=== PATIENT | female | born 1945 | race Caucasian/White ===

== ENCOUNTER 2017-09-15 08:36 | Emergency (ER) | payer MEDICARE ==
[~2017-09-15] VITALS: Ht 154.9 cm; Wt 72.6 kg
[2017-09-15 09:39] LABS: Basophils # (auto) 0.1 uL; Eosinophils # (auto) 0.8 uL; Monocytes # (auto) 0.7 uL; Monocytes % (auto) 4.6 % (0.0-12.0)
[2017-09-15 09:42] LABS: Basophils % (auto) 0.4 % (0.0-2.0); Eosinophils % (auto) 5.7 % (0.0-7.0); Hematocrit 35.3 % (36.0-46.0); Hemoglobin 11.2 g/dL (12.2-16.2); Lymphocytes # (auto) 3.2 uL; Lymphocytes % (auto) 21.6 % (10.0-50.0); Mean Corpuscular Hemoglobin 26.3 pg (28.0-32.0); Mean Corpuscular Hgb Conc. 31.6 g/dL (32.0-36.0); Neutrophils # (auto) 9.9 uL; Neutrophils % (auto) 67.7 % (37.0-80.0); Platelet Count (auto) 610 10^3/uL (140-450); Red Blood Cells 4.25 10^6/uL (4.0-5.20); Red Cell Distribution Width 17.8 % (11.8-14.3); White Blood Cell 14.6 10^3/uL (4.4-10.8)
[2017-09-15 09:57] LABS: Alanine Aminotransferase 7 U/L (13-56); Albumin 3.6 g/dL (3.4-5.0); Alkaline Phosphatase 80 U/L (45-117); Anion Gap 11 (5-15); Aspartate Aminotransferase 16 U/L (15-37); Bilirubin, Total 0.3 mg/dL (0.2-1.0); Blood Urea Nitrogen 17 mg/dL (7-18); Calcium 9.3 mg/dL (8.5-10.1); Carbon Dioxide 18 mmol/L (21-32); Chloride 108 mmol/L (98-107); GFR African American 47 mL/min; GFR Non-African American 39 mL/min; Glucose 104 mg/dL (74-106); Potassium 3.7 mmol/L (3.5-5.1); Sodium 137 mmol/L (136-145); Total Protein 8.3 g/dL (6.4-8.2)
[2017-09-15] MEDS ORDERED: SODIUM CHLORIDE 0.9% 1,000 ML IV ONE (10:25)
[2017-09-15] MEDS ORDERED: cefTRIAXone 1GM/10ml IVPUSH 10 ML IV ONE (11:00)
[2017-09-15] MEDS ORDERED: AZITHROMYCIN 500MG/ 250ML 250 ML IV ONE (11:15)
[2017-09-15 11:35] VITALS: BP 168/85
[2017-09-15 11:45] LABS: Urine Bacteria FEW /hpf (None Seen); Urine Blood Negative /uL (Negative); Urine Mucus FEW (None Seen); Urine Specific Gravity 1.009 (1.001-1.035); Urine WBC 1 /hpf (0 - 5)
[2017-09-15] MEDS ORDERED: ONDANSETRON HCL 4 MG/2 ML VIAL ONE (12:45)
[2017-09-15] MEDS ORDERED: ONDANSETRON HCL 4 MG/2 ML VIAL IV ONE (12:45)
== END 2017-09-15 13:38 | disposition home or self-care (01) ==
LOC: ER 08:36
DX: G20 Parkinson's disease (principal); N39.0 Urinary tract infection, site not specified; I10 Essential (primary) hypertension; J44.9 Chronic obstructive pulmonary disease, unspecified; Z88.6 Allergy status to analgesic agent; Z88.1 Allergy status to other antibiotic agents
CPT/HCPCS: 36415; 71046; 80053; 81001; 82962; 84484; 85025; 93005; 94761; 96361; 96365; 96366; 96375; 99285; J0456; J2405

== ENCOUNTER 2017-11-21 05:56 | Emergency (ER) | payer MEDICARE ==
[~2017-11-21] VITALS: Ht 154.9 cm; Wt 74.4 kg
[2017-11-21 06:41] LABS: Hematocrit 35.6 % (36.0-46.0); Hemoglobin 11.2 g/dL (12.2-16.2); Mean Corpuscular Hgb Conc. 31.6 g/dL (32.0-36.0); Mean Corpuscular Volume 79.3 fL (80.0-100.0); Platelet Count (auto) 535 10^3/uL (140-450); Red Blood Cells 4.48 10^6/uL (4.0-5.20); Red Cell Distribution Width 18.6 % (11.8-14.3); White Blood Cell 9.3 10^3/uL (4.4-10.8)
[2017-11-21 06:43] LABS: Blast Cells 0; Myelocytes % 0; Promyelocytes % 0; Reactive Lymphocytes 0
[2017-11-21 06:48] LABS: INR 0.93 (0.9-1.15); Partial Thromboplastin Time 30.8 sec (23.78-33.04)
[2017-11-21 06:54] LABS: Alanine Aminotransferase 13 U/L (13-56); Albumin 3.5 g/dL (3.4-5.0); Anion Gap 9 (5-15); Aspartate Aminotransferase 18 U/L (15-37); BUN/Creatinine Ratio 11.1; Blood Urea Nitrogen 16 mg/dL (7-18); Carbon Dioxide 23 mmol/L (21-32); Chloride 104 mmol/L (98-107); GFR African American 46 mL/min; GFR Non-African American 38 mL/min; Glucose 117 mg/dL (74-106); Magnesium 2.3 mg/dL (1.6-2.6); Potassium 3.6 mmol/L (3.5-5.1); Sodium 136 mmol/L (136-145)
[2017-11-21 06:58] LABS: Alkaline Phosphatase 79 U/L (45-117); Bilirubin, Total 0.5 mg/dL (0.2-1.0); Total Protein 8.3 g/dL (6.4-8.2)
[2017-11-21 07:17] VITALS: BP 161/95
[2017-11-21 07:43] LABS: Band Neutrophils % (manual) 4; Basophils % (manual) 0 (0.0-2.0); Eosinophils % (manual) 1 (0-7); Lymphocytes % (manual) 22 (10.0-50.0); Metamyelocytes % 0; Monocytes % (manual) 6 (0-12)
== END 2017-11-21 12:14 | disposition home or self-care (01) ==
LOC: ER 06:05
DX: S29.011A Strain of muscle and tendon of front wall of thorax, initial encounter (principal); J44.9 Chronic obstructive pulmonary disease, unspecified; I10 Essential (primary) hypertension; R06.02 Shortness of breath; Z88.1 Allergy status to other antibiotic agents; Z88.2 Allergy status to sulfonamides; Z88.6 Allergy status to analgesic agent; X58.XXXA Exposure to other specified factors, initial encounter; Y93.89 Activity, other specified; Y92.89 Other specified places as the place of occurrence of the external cause; Y99.8 Other external cause status
CPT/HCPCS: 36415; 71045; 80053; 83735; 83880; 84443; 84484; 85007; 85027; 85610; 85730; 93005

== ENCOUNTER 2018-01-22 06:35 | Emergency (ER) | payer MEDICARE ==
[~2018-01-22] VITALS: Ht 160 cm; Wt 48.1 kg
[2018-01-22] MEDS ORDERED: methylPREDNISolone SOD SUCC 125 MG/2 ML VL IV ONE (07:30)
[2018-01-22] MEDS ORDERED: IPRATROPIUM BROM 0.5 MG/2.5ML INH SOL NEB ONE (07:30)
[2018-01-22] MEDS ORDERED: ALBUTEROL SULF 2.5 MG/0.5ML(0.5%) NEB SOLN NEB ONE (07:30)
[2018-01-22 07:35] LABS: Basophils # (auto) 0.2 uL; Basophils % (auto) 2.5 % (0.0-2.0); Eosinophils # (auto) 0.4 uL; Eosinophils % (auto) 4.4 % (0.0-7.0); Hematocrit 35.6 % (36.0-46.0); Hemoglobin 11.3 g/dL (12.2-16.2); Lymphocytes # (auto) 5.1 uL; Lymphocytes % (auto) 53.5 % (10.0-50.0); Mean Corpuscular Hemoglobin 25.4 pg (28.0-32.0); Mean Corpuscular Hgb Conc. 31.6 g/dL (32.0-36.0); Mean Corpuscular Volume 80.4 fL (80.0-100.0); Monocytes # (auto) 0.5 uL; Monocytes % (auto) 5.6 % (0.0-12.0); Neutrophils # (auto) 3.3 uL; Nucleated Red Blood Cells % 0.1 %; Platelet Count (auto) 631 10^3/uL (140-450); Red Blood Cells 4.43 10^6/uL (4.0-5.20); White Blood Cell 9.6 10^3/uL (4.4-10.8)
[2018-01-22 07:45] LABS: INR 0.97 (0.9-1.15); Partial Thromboplastin Time 28.9 sec (23.78-33.04); Prothrombin Time 10.4 sec (9.27-12.13)
[2018-01-22 08:04] LABS: Albumin 3.1 g/dL (3.4-5.0); Anion Gap 10 (5-15); Blood Urea Nitrogen 11 mg/dL (7-18); Calcium 9.3 mg/dL (8.5-10.1); Carbon Dioxide 24 mmol/L (21-32); Chloride 105 mmol/L (98-107); Glucose 105 mg/dL (74-106); Potassium 3.5 mmol/L (3.5-5.1); Sodium 139 mmol/L (136-145)
[2018-01-22 08:06] LABS: BUN/Creatinine Ratio 12.6; GFR African American 82 mL/min; GFR Non-African American 68 mL/min
[2018-01-22 08:11] LABS: Alanine Aminotransferase 6 U/L (13-56); Alkaline Phosphatase 112 U/L (45-117); Aspartate Aminotransferase 15 U/L (15-37); Bilirubin, Total 0.3 mg/dL (0.2-1.0); Total Protein 8.1 g/dL (6.4-8.2)
[2018-01-22 10:00] LABS: Urine Bacteria NONE SEEN /hpf (None Seen); Urine Blood Negative /uL (Negative); Urine Mucus FEW (None Seen); Urine WBC 3 /hpf (0 - 5)
[2018-01-22 11:29] VITALS: BP 141/89
[2018-02-24] MEDS ORDERED: ALBUAER3 IN (11:45)
[2018-02-24] MEDS ORDERED: FER325T PO (11:45)
[2018-02-24] MEDS ORDERED: PANT40T PO (11:45)
== END 2018-01-22 12:09 | disposition home or self-care (01) ==
LOC: EDBD 06:35 → ER 06:35
DX: J45.901 Unspecified asthma with (acute) exacerbation (principal); N39.0 Urinary tract infection, site not specified; J44.9 Chronic obstructive pulmonary disease, unspecified; I10 Essential (primary) hypertension; Z90.49 Acquired absence of other specified parts of digestive tract; Z90.710 Acquired absence of both cervix and uterus
CPT/HCPCS: 36415; 71045; 80053; 81001; 83735; 83880; 84484; 85025; 85610; 85730; 93005; 94640; 96374; 99285; J2930

== ENCOUNTER 2018-02-15 02:15 | Inpatient (IN) | payer MEDICARE ==
[~2018-02-15] VITALS: Ht 157.5 cm; Wt 74.5 kg
[2018-02-15 03:24] LABS: Basophils # (auto) 0.1 uL; Eosinophils # (auto) 0 uL; Lymphocytes # (auto) 0.4 uL; Monocytes # (auto) 0.8 uL; Neutrophils % (auto) 88.9 % (37.0-80.0)
[2018-02-15 03:26] LABS: Basophils % (auto) 0.4 % (0.0-2.0); Eosinophils % (auto) 0.1 % (0.0-7.0); Lymphocytes % (auto) 3.7 % (10.0-50.0); Mean Corpuscular Hemoglobin 26.1 pg (28.0-32.0); Mean Corpuscular Hgb Conc. 32.2 g/dL (32.0-36.0); Mean Corpuscular Volume 81.1 fL (80.0-100.0); Monocytes % (auto) 6.9 % (0.0-12.0); Neutrophils # (auto) 10.9 uL; Nucleated Red Blood Cells % 0.1 %; Platelet Count (auto) 450 10^3/uL (140-450); Red Blood Cells 3.45 10^6/uL (4.0-5.20); White Blood Cell 12.2 10^3/uL (4.4-10.8)
[2018-02-15 03:39] LABS: INR 1.03 (0.9-1.15); Partial Thromboplastin Time 31.6 sec (23.78-33.04)
[2018-02-15 03:42] LABS: Alanine Aminotransferase 10 U/L (13-56); Albumin 2.8 g/dL (3.4-5.0); Anion Gap 15 (5-15); Aspartate Aminotransferase 82 U/L (15-37); BUN/Creatinine Ratio 23.3; Blood Alcohol < 3.0 mg/dL (0-5); Blood Urea Nitrogen 28 mg/dL (7-18); Calcium 9.1 mg/dL (8.5-10.1); Carbon Dioxide 21 mmol/L (21-32); Chloride 97 mmol/L (98-107); GFR African American 57 mL/min; GFR Non-African American 47 mL/min; Glucose 69 mg/dL (74-106); Potassium 3.6 mmol/L (3.5-5.1); Sodium 133 mmol/L (136-145)
[2018-02-15 03:47] LABS: Alkaline Phosphatase 83 U/L (45-117); Bilirubin, Total 0.9 mg/dL (0.2-1.0); Total Protein 6.8 g/dL (6.4-8.2)
[2018-02-15] MEDS ORDERED: NALBUPHINE HCL 10 MG/1ml INJECTION ONE (04:24)
[2018-02-15] MEDS ORDERED: PROMETHAZINE HCL 25 MG/ML 1ML ONE (04:24)
[2018-02-15] MEDS ORDERED: PROMETHAZINE HCL 25 MG/ML 1ML IV ONE (04:30)
[2018-02-15] MEDS ORDERED: NALBUPHINE HCL 10 MG/1ml INJECTION IV ONE (04:30)
[2018-02-15] MEDS ORDERED: SODIUM CHLORIDE 0.9% 1,000 ML IV ONE ×2 (04:45→12:15)
[2018-02-15] MEDS ORDERED: LORazepam 2MG/ML-1ML VIAL IV ONE (06:15)
[2018-02-15 06:30] LABS: Urine WBC None Seen /hpf (0 - 5)
[2018-02-15 06:46] LABS: Urine Bacteria NONE SEEN /hpf (None Seen); Urine Blood TRACE /uL (Negative); Urine Specific Gravity 1.009 (1.001-1.035)
[2018-02-15 06:54] LABS: Alcohol, Urine < 3.0 mg/dL (0-5); Amphetamine Screen, Urine NEGATIVE (NEGATIVE); Barbiturate Scree,Urine NEGATIVE (NEGATIVE); Benzodiazephine Screen, Urine POSITIVE (NEGATIVE); Cannabinoid Screen, Urine NEGATIVE (NEGATIVE); Cocaine Screen, Urine NEGATIVE (NEGATIVE); Opiate Scree,Urine POSITIVE (NEGATIVE); Phencyclidine Screen, Urine NEGATIVE (NEGATIVE)
[2018-02-15] MEDS ORDERED: IOHEXOL 300 MG/ML 100ML BOTTLE IJ ONE (08:32)
[2018-02-15] MEDS ORDERED: SODIUM CHLORIDE 0.9% 1,000 ML IV SCH (12:02)
[2018-02-15] MEDS ORDERED: HYDROmorphone HCL 2 MG/ML VL IV PRN (12:15)
[2018-02-15] MEDS ORDERED: NITROGLYCERIN 0.4 MG SL TAB SL PRN (12:15)
[2018-02-15] MEDS ORDERED: PROMETHAZINE HCL 25 MG/ML 1ML IV PRN (12:15)
[2018-02-15] MEDS ORDERED: PANTOPRAZOLE 40 MG/10 ML VIAL IV ONE (12:15)
[2018-02-15] MEDS ORDERED: cefTRIAXone 1GM/10ml IVPUSH 10 ML IV ONE (12:15)
[2018-02-15] MEDS ORDERED: metroNIDAZOLE 500MG/100ML 100 ML IV ONE (12:15)
[2018-02-15 13:34] LABS: Amylase 23 U/L (25-115); Lipase 43 U/L (73-393)
[2018-02-15] MEDS: SODIUM CHLORIDE 0.9% 1,000 ML IV SCH (14:50)
[2018-02-15 15:00] VITALS: BP 132/35
[2018-02-15 15:44] VITALS: BP 117/75
[2018-02-15] MEDS: HYDROmorphone HCL 2 MG/ML VL IV PRN ×2 (16:02→23:07)
[2018-02-15] MEDS: metroNIDAZOLE 500MG/100ML 100 ML IV SCH (17:32)
[2018-02-15 18:02] LABS: Hematocrit 25.5 % (36.0-46.0); Hemoglobin 8.1 g/dL (12.2-16.2)
[2018-02-15 20:00] VITALS: BP 136/74
[2018-02-16] VITALS: BP 134/74
[2018-02-16 00:47] LABS: Hematocrit 24.8 % (36.0-46.0); Hemoglobin 7.9 g/dL (12.2-16.2)
[2018-02-16] MEDS: SODIUM CHLORIDE 0.9% 1,000 ML IV SCH ×2 (01:00→15:43)
[2018-02-16 04:00] VITALS: BP 132/72
[2018-02-16 05:40] LABS: Basophils # (auto) 0 uL; Basophils % (auto) 0.2 % (0.0-2.0); Eosinophils # (auto) 0 uL; Hematocrit 24.1 % (36.0-46.0); Monocytes # (auto) 0.8 uL; Monocytes % (auto) 5.9 % (0.0-12.0); White Blood Cell 14.2 10^3/uL (4.4-10.8)
[2018-02-16 05:43] LABS: Eosinophils % (auto) 0.1 % (0.0-7.0); Hemoglobin 7.5 g/dL (12.2-16.2); Lymphocytes # (auto) 3.2 uL; Lymphocytes % (auto) 22.3 % (10.0-50.0); Mean Corpuscular Hemoglobin 25.7 pg (28.0-32.0); Mean Corpuscular Hgb Conc. 31.3 g/dL (32.0-36.0); Mean Corpuscular Volume 82.1 fL (80.0-100.0); Neutrophils # (auto) 10.2 uL; Neutrophils % (auto) 71.5 % (37.0-80.0); Nucleated Red Blood Cells % 0.2 %; Platelet Count (auto) 394 10^3/uL (140-450); Red Blood Cells 2.93 10^6/uL (4.0-5.20)
[2018-02-16 05:51] LABS: Red Cell Distribution Width 20.4 % (11.8-14.3)
[2018-02-16 05:53] LABS: Albumin 2.1 g/dL (3.4-5.0); BUN/Creatinine Ratio 30.2; Calcium 7.5 mg/dL (8.5-10.1); Potassium 3.6 mmol/L (3.5-5.1)
[2018-02-16 05:56] LABS: Bilirubin, Total 0.5 mg/dL (0.2-1.0); Total Protein 5.7 g/dL (6.4-8.2)
[2018-02-16] MEDS: metroNIDAZOLE 500MG/100ML 100 ML IV SCH ×5 (06:25→23:54)
[2018-02-16] MEDS ORDERED: GASTROGRAFIN 120 ML SOL ONE (08:57)
[2018-02-16] MEDS ORDERED: EZ-GAS II GRANULES (RADIOLOGY USE) PO ONE (08:57)
[2018-02-16] MEDS: cefTRIAXone 1GM/10ml IVPUSH 10 ML IV SCH (10:12)
[2018-02-16] MEDS: PANTOPRAZOLE 40 MG/10 ML VIAL IV SCH (10:13)
[2018-02-16 10:34] LABS: Mean Corpuscular Hemoglobin 26.2 pg (28.0-32.0)
[2018-02-16 10:37] LABS: Hematocrit 27.8 % (36.0-46.0); Hemoglobin 8.8 g/dL (12.2-16.2); Mean Corpuscular Hgb Conc. 31.8 g/dL (32.0-36.0); Mean Corpuscular Volume 82.3 fL (80.0-100.0); Platelet Count (auto) 429 10^3/uL (140-450); Red Blood Cells 3.37 10^6/uL (4.0-5.20); White Blood Cell 14.2 10^3/uL (4.4-10.8)
[2018-02-16 10:47] LABS: Red Cell Distribution Width 20.8 % (11.8-14.3)
[2018-02-16 10:48] LABS: Basophils % (manual) 0 (0.0-2.0); Blast Cells 0; Eosinophils % (manual) 0 (0-7); Metamyelocytes % 0; Myelocytes % 0; Promyelocytes % 0; Reactive Lymphocytes 0
[2018-02-16 11:20] LABS: Band Neutrophils % (manual) 1; Lymphocytes % (manual) 10 (10.0-50.0); Monocytes % (manual) 6 (0-12)
[2018-02-16 12:00] VITALS: BP 154/78
[2018-02-16 16:00] VITALS: BP 151/82
[2018-02-16 19:19] LABS: % Iron Saturation 2.7 % (15-50)
[2018-02-16 20:00] VITALS: BP 159/82
[2018-02-17] VITALS (7 sets, daily range): BP systolic 108–175; BP diastolic 75–98
[2018-02-17] MEDS: SODIUM CHLORIDE 0.9% 1,000 ML IV SCH ×2 (04:08→17:44)
[2018-02-17 06:05] LABS: Basophils # (auto) 0.1 uL; Eosinophils # (auto) 0 uL; Hemoglobin 8.3 g/dL (12.2-16.2); Nucleated Red Blood Cells % 0.2 %
[2018-02-17 06:08] LABS: Basophils % (auto) 0.8 % (0.0-2.0); Lymphocytes # (auto) 4.4 uL; Lymphocytes % (auto) 30.7 % (10.0-50.0); Mean Corpuscular Hemoglobin 26.5 pg (28.0-32.0); Mean Corpuscular Hgb Conc. 31.9 g/dL (32.0-36.0); Monocytes # (auto) 0.6 uL; Monocytes % (auto) 4.5 % (0.0-12.0); Neutrophils # (auto) 9.1 uL; Platelet Count (auto) 455 10^3/uL (140-450); Red Blood Cells 3.13 10^6/uL (4.0-5.20); White Blood Cell 14.2 10^3/uL (4.4-10.8)
[2018-02-17 06:18] LABS: Red Cell Distribution Width 21.6 % (11.8-14.3)
[2018-02-17] MEDS: metroNIDAZOLE 500MG/100ML 100 ML IV SCH ×4 (06:29→23:59)
[2018-02-17 06:47] LABS: Albumin 2.4 g/dL (3.4-5.0); BUN/Creatinine Ratio 18.8; Bilirubin, Total 0.6 mg/dL (0.2-1.0); Calcium 7.9 mg/dL (8.5-10.1); Folate (Folic Acid) 6.99 ng/mL (5.38-24); Magnesium 2.2 mg/dL (1.6-2.6); Potassium 3.2 mmol/L (3.5-5.1); Total Protein 6.5 g/dL (6.4-8.2)
[2018-02-17] MEDS ORDERED: ADENOSINE 63 MG in GIVE UN-DILUTED 0 ML IV ONE (08:30)
[2018-02-17] MEDS: PANTOPRAZOLE 40 MG/10 ML VIAL IV SCH (09:53)
[2018-02-17] MEDS: cefTRIAXone 1GM/10ml IVPUSH 10 ML IV SCH (09:53)
[2018-02-17] MEDS: POTASSIUM CHL 20MEQ/100ML 100 ML IV SCH ×2 (15:58→17:54)
[2018-02-18 00:05] VITALS: BP 149/87
[2018-02-18 04:15] VITALS: BP 160/91
[2018-02-18 05:45] LABS: Hemoglobin 8.2 g/dL (12.2-16.2)
[2018-02-18 05:47] LABS: Hematocrit 26.6 % (36.0-46.0); Mean Corpuscular Hemoglobin 25.6 pg (28.0-32.0); Mean Corpuscular Volume 82.6 fL (80.0-100.0); Platelet Count (auto) 451 10^3/uL (140-450); Red Blood Cells 3.22 10^6/uL (4.0-5.20); White Blood Cell 13.2 10^3/uL (4.4-10.8)
[2018-02-18 06:05] LABS: Red Cell Distribution Width 21.4 % (11.8-14.3)
[2018-02-18 06:06] LABS: Basophils % (manual) 0 (0.0-2.0); Blast Cells 0; Eosinophils % (manual) 0 (0-7); Metamyelocytes % 0; Myelocytes % 0; Promyelocytes % 0; Reactive Lymphocytes 0
[2018-02-18 06:08] LABS: BUN/Creatinine Ratio 10.4; Calcium 7.8 mg/dL (8.5-10.1)
[2018-02-18 06:20] LABS: Potassium 2.7 mmol/L (3.5-5.1)
[2018-02-18] MEDS: metroNIDAZOLE 500MG/100ML 100 ML IV SCH (06:30)
[2018-02-18] MEDS ORDERED: LABETALOL HCL 5 MG/ML ML 20ML VIAL IV PRN (06:30)
[2018-02-18] MEDS ORDERED: POTASSIUM CHL 20 Meq TABLET PO ONE (06:45)
[2018-02-18] MEDS: POTASSIUM CHL 20MEQ/100ML 100 ML IV SCH ×2 (07:08→09:20)
[2018-02-18 07:50] VITALS: BP 152/94
[2018-02-18 07:54] LABS: Band Neutrophils % (manual) 1; Lymphocytes % (manual) 9 (10.0-50.0); Monocytes % (manual) 7 (0-12)
[2018-02-18] MEDS: cefTRIAXone 1GM/10ml IVPUSH 10 ML IV SCH (08:35)
[2018-02-18] MEDS: PANTOPRAZOLE 40 MG/10 ML VIAL IV SCH (10:16)
[2018-02-18] MEDS ORDERED: PNEUMOCOCCAL VACC POLYS 25 MCG/0.5 ML VIAL IM SCH (11:15)
[2018-02-18] MEDS ORDERED: ENOXAPARIN SOD 40 MG/0.4 ML SYRINGE SC ONE (11:15)
[2018-02-18] MEDS ORDERED: metroNIDAZOLE 500 MG TAB PO ONE (11:15)
[2018-02-18 11:44] VITALS: BP 154/97
[2018-02-18] MEDS ORDERED: LORazepam 2MG/ML-1ML VIAL ONE (13:06)
[2018-02-18] MEDS ORDERED: LORazepam 2MG/ML-1ML VIAL IM ONE (13:15)
[2018-02-18] MEDS: metroNIDAZOLE 500 MG TAB PO SCH ×2 (13:55→21:19)
[2018-02-18 15:50] VITALS: BP 142/92
[2018-02-18] MEDS: SODIUM CHLORIDE 0.9% 1,000 ML IV SCH (17:26)
[2018-02-18 19:50] VITALS: BP 149/98
[2018-02-18] MEDS ORDERED: LORazepam 2MG/ML-1ML VIAL IV PRN (20:15)
[2018-02-19] VITALS: BP 149/97
[2018-02-19] MEDS: SODIUM CHLORIDE 0.9% 1,000 ML IV SCH ×2 (01:30→08:01)
[2018-02-19 04:00] VITALS: BP 148/91
[2018-02-19] MEDS: metroNIDAZOLE 500 MG TAB PO SCH ×3 (05:04→21:53)
[2018-02-19 08:00] VITALS: BP 142/72
[2018-02-19] MEDS: cefTRIAXone 1GM/10ml IVPUSH 10 ML IV SCH (10:07)
[2018-02-19] MEDS: PANTOPRAZOLE 40 MG/10 ML VIAL IV SCH (10:07)
[2018-02-19] MEDS: ENOXAPARIN SOD 40 MG/0.4 ML SYRINGE SC SCH (10:07)
[2018-02-19] MEDS ORDERED: POTASSIUM CHL 10 Meq TABLET PO ONE (10:15)
[2018-02-19 10:22] LABS: Eosinophils # (auto) 0.1 uL; Eosinophils % (auto) 0.7 % (0.0-7.0); Mean Corpuscular Hemoglobin 25.8 pg (28.0-32.0); Monocytes # (auto) 0.9 uL
[2018-02-19 10:24] LABS: Basophils # (auto) 0.1 uL; Basophils % (auto) 0.8 % (0.0-2.0); Hematocrit 29.4 % (36.0-46.0); Hemoglobin 9.5 g/dL (12.2-16.2); Lymphocytes # (auto) 4.8 uL; Lymphocytes % (auto) 44.1 % (10.0-50.0); Mean Corpuscular Hgb Conc. 32.1 g/dL (32.0-36.0); Mean Corpuscular Volume 80.4 fL (80.0-100.0); Monocytes % (auto) 7.9 % (0.0-12.0); Neutrophils # (auto) 5.1 uL; Neutrophils % (auto) 46.5 % (37.0-80.0); Nucleated Red Blood Cells % 1.1 %; Platelet Count (auto) 565 10^3/uL (140-450); Red Blood Cells 3.66 10^6/uL (4.0-5.20); White Blood Cell 10.9 10^3/uL (4.4-10.8)
[2018-02-19 10:28] LABS: Red Cell Distribution Width 21.5 % (11.8-14.3)
[2018-02-19 10:37] LABS: BUN/Creatinine Ratio 13.2; Calcium 8.2 mg/dL (8.5-10.1)
[2018-02-19 10:40] LABS: Potassium 2.7 mmol/L (3.5-5.1)
[2018-02-19] MEDS ORDERED: POTASSIUM CHL 20 Meq TABLET PO ONE (11:45)
[2018-02-19 12:00] VITALS: BP 137/96
[2018-02-19] MEDS: POTASSIUM CHL 20MEQ/100ML 100 ML IV SCH ×2 (12:29→14:03)
[2018-02-19 16:00] VITALS: BP 154/81
[2018-02-19 19:54] VITALS: BP 146/86
[2018-02-20] VITALS: BP 158/90
[2018-02-20 04:00] VITALS: BP 164/100
[2018-02-20 05:16] LABS: Basophils # (auto) 0.1 uL; Eosinophils # (auto) 0.2 uL; Hemoglobin 9.3 g/dL (12.2-16.2); Monocytes # (auto) 1.2 uL
[2018-02-20 05:18] LABS: Basophils % (auto) 1.1 % (0.0-2.0); Hematocrit 28.3 % (36.0-46.0); Lymphocytes # (auto) 3.6 uL; Lymphocytes % (auto) 36.3 % (10.0-50.0); Mean Corpuscular Hemoglobin 26.4 pg (28.0-32.0); Mean Corpuscular Hgb Conc. 32.7 g/dL (32.0-36.0); Mean Corpuscular Volume 80.9 fL (80.0-100.0); Monocytes % (auto) 11.7 % (0.0-12.0); Neutrophils # (auto) 4.9 uL; Neutrophils % (auto) 48.9 % (37.0-80.0); Nucleated Red Blood Cells % 0.9 %; Platelet Count (auto) 524 10^3/uL (140-450); White Blood Cell 9.9 10^3/uL (4.4-10.8)
[2018-02-20 05:25] LABS: Red Cell Distribution Width 21.7 % (11.8-14.3)
[2018-02-20 05:28] LABS: Magnesium 1.4 mg/dL (1.6-2.6); Potassium 3.2 mmol/L (3.5-5.1)
[2018-02-20] MEDS: metroNIDAZOLE 500 MG TAB PO SCH ×3 (06:27→21:10)
[2018-02-20 07:50] VITALS: BP 172/88
[2018-02-20] MEDS: cefTRIAXone 1GM/10ml IVPUSH 10 ML IV SCH (09:12)
[2018-02-20] MEDS ORDERED: GIVE UN DILUTED IV ONE (09:15)
[2018-02-20] MEDS ORDERED: ADENOSINE IV ONE (09:15)
[2018-02-20] MEDS: SODIUM CHLORIDE 0.9% 1,000 ML IV SCH (09:25)
[2018-02-20] MEDS ORDERED: POTASSIUM CHL 20 Meq TABLET PO ONE (10:00)
[2018-02-20] MEDS: ENOXAPARIN SOD 40 MG/0.4 ML SYRINGE SC SCH (10:09)
[2018-02-20] MEDS: PANTOPRAZOLE 40 MG/10 ML VIAL IV SCH (10:09)
[2018-02-20] MEDS: MAGNESIUM SULFATE 1GM/100ML 100 ML IV SCH ×2 (10:12→12:54)
[2018-02-20] MEDS: FOLIC ACID 1 MG TAB PO SCH (10:12)
[2018-02-20] MEDS ORDERED: ADENOSINE 63 MG in GIVE UN-DILUTED 0 ML IV ONE ×2 (11:35→12:00)
[2018-02-20] MEDS ORDERED: GOLYTELY 4L KIT PO ONE (12:00)
[2018-02-20] MEDS: SODIUM FERR GLUC 62.5MG/5ML 125 MG in SODIUM CHL 0.9% 100 ML IV SCH (13:00)
[2018-02-20 15:43] VITALS: BP 138/83
[2018-02-20 19:40] VITALS: BP 145/79
[2018-02-21] VITALS: BP 130/59
[2018-02-21] MEDS: SODIUM CHLORIDE 0.9% 1,000 ML IV SCH ×3 (02:05→11:05)
[2018-02-21 04:00] VITALS: BP 150/85
[2018-02-21] MEDS ORDERED: GOLYTELY 4L KIT PO ONE ×2 (04:00→12:00)
[2018-02-21 05:32] LABS: Basophils # (auto) 0.1 uL; Eosinophils # (auto) 0.2 uL; Nucleated Red Blood Cells % 0.7 %
[2018-02-21 05:36] LABS: Basophils % (auto) 0.6 % (0.0-2.0); Hemoglobin 9.1 g/dL (12.2-16.2); Lymphocytes # (auto) 2.6 uL; Lymphocytes % (auto) 23.9 % (10.0-50.0); Mean Corpuscular Hemoglobin 26.1 pg (28.0-32.0); Mean Corpuscular Hgb Conc. 32.3 g/dL (32.0-36.0); Mean Corpuscular Volume 80.9 fL (80.0-100.0); Monocytes # (auto) 1.3 uL; Monocytes % (auto) 11.9 % (0.0-12.0); Neutrophils # (auto) 6.7 uL; Neutrophils % (auto) 61.6 % (37.0-80.0); Platelet Count (auto) 540 10^3/uL (140-450); Red Blood Cells 3.47 10^6/uL (4.0-5.20); White Blood Cell 10.9 10^3/uL (4.4-10.8)
[2018-02-21 05:40] LABS: Red Cell Distribution Width 21.6 % (11.8-14.3)
[2018-02-21 05:44] LABS: BUN/Creatinine Ratio 12.8; Calcium 7.6 mg/dL (8.5-10.1); Magnesium 1.9 mg/dL (1.6-2.6); Potassium 3.3 mmol/L (3.5-5.1)
[2018-02-21] MEDS: metroNIDAZOLE 500 MG TAB PO SCH ×3 (06:00→21:38)
[2018-02-21 07:45] VITALS: BP 150/103
[2018-02-21] MEDS: FOLIC ACID 1 MG TAB PO SCH (09:53)
[2018-02-21] MEDS: PANTOPRAZOLE 40 MG/10 ML VIAL IV SCH (09:53)
[2018-02-21] MEDS: cefTRIAXone 1GM/10ml IVPUSH 10 ML IV SCH (09:53)
[2018-02-21] MEDS: ENOXAPARIN SOD 40 MG/0.4 ML SYRINGE SC SCH (09:54)
[2018-02-21] MEDS ORDERED: LABETALOL HCL 5 MG/ML ML 20ML VIAL IV PRN (10:45)
[2018-02-21] MEDS ORDERED: POTASSIUM CHL 20 Meq TABLET PO ONE (10:45)
[2018-02-21] MEDS ORDERED: MAGNESIUM SULFATE 1GM/100ML 100 ML IV ONE (10:45)
[2018-02-21] MEDS: HYDROcodone-ACET 5/325MG TAB PO PRN ×2 (11:07→15:57)
[2018-02-21] MEDS: SODIUM FERR GLUC 62.5MG/5ML 125 MG in SODIUM CHL 0.9% 100 ML IV SCH (11:23)
[2018-02-21 12:02] VITALS: BP 150/85
[2018-02-21 16:04] VITALS: BP 118/77
[2018-02-21 20:11] VITALS: BP 148/85
[2018-02-22] VITALS: BP 128/88
[2018-02-22 04:00] VITALS: BP 140/78
[2018-02-22] MEDS ORDERED: GOLYTELY 4L KIT PO ONE (04:00)
[2018-02-22] MEDS: SODIUM CHLORIDE 0.9% 1,000 ML IV SCH (05:38)
[2018-02-22 05:55] LABS: Potassium 3.5 mmol/L (3.5-5.1)
[2018-02-22 05:56] LABS: Magnesium 1.8 mg/dL (1.6-2.6)
[2018-02-22 06:03] LABS: Basophils # (auto) 0.1 uL; Hemoglobin 8.4 g/dL (12.2-16.2); Red Blood Cells 3.26 10^6/uL (4.0-5.20)
[2018-02-22 06:04] LABS: Basophils % (auto) 0.6 % (0.0-2.0); Eosinophils # (auto) 0.3 uL; Eosinophils % (auto) 3.3 % (0.0-7.0); Hematocrit 26.7 % (36.0-46.0); Lymphocytes # (auto) 3.5 uL; Lymphocytes % (auto) 39.8 % (10.0-50.0); Mean Corpuscular Hemoglobin 25.9 pg (28.0-32.0); Mean Corpuscular Hgb Conc. 31.7 g/dL (32.0-36.0); Mean Corpuscular Volume 81.8 fL (80.0-100.0); Monocytes % (auto) 10.8 % (0.0-12.0); Neutrophils % (auto) 45.5 % (37.0-80.0); Platelet Count (auto) 586 10^3/uL (140-450); White Blood Cell 8.8 10^3/uL (4.4-10.8)
[2018-02-22 06:09] LABS: Red Cell Distribution Width 21.9 % (11.8-14.3)
[2018-02-22] MEDS: metroNIDAZOLE 500 MG TAB PO SCH ×3 (06:48→21:32)
[2018-02-22 08:00] VITALS: BP 145/80
[2018-02-22] MEDS ORDERED: NALOXONE HCL 0.4 MG/ML VIAL ONE (09:27)
[2018-02-22] MEDS ORDERED: FLUMAZENIL 0.1 MG/ML INJ 10ML MDV IV ONE (09:27)
[2018-02-22] MEDS ORDERED: LIDOCAINE VISCOUS 2% 15ML UD ONE (09:27)
[2018-02-22] MEDS ORDERED: SODIUM CHLORIDE LOCK 10 ML ONE (09:27)
[2018-02-22] MEDS: PANTOPRAZOLE 40 MG/10 ML VIAL IV SCH (09:29)
[2018-02-22] MEDS: cefTRIAXone 1GM/10ml IVPUSH 10 ML IV SCH (09:30)
[2018-02-22] MEDS: FOLIC ACID 1 MG TAB PO SCH (09:30)
[2018-02-22] MEDS: ENOXAPARIN SOD 40 MG/0.4 ML SYRINGE SC SCH (09:30)
[2018-02-22] MEDS ORDERED: MAGNESIUM SULFATE 1GM/100ML 100 ML IV ONE (11:15)
[2018-02-22 13:09] VITALS: BP 145/80
[2018-02-22] MEDS: MIDAZOLAM HCL 5 MG/ML-1ML VIAL ONE ×2 (13:13→13:22)
[2018-02-22] MEDS: fentaNYL CITRATE 100 MCG/2 ML VL ONE ×2 (13:13→13:22)
[2018-02-22] MEDS: SODIUM FERR GLUC 62.5MG/5ML 125 MG in SODIUM CHL 0.9% 100 ML IV SCH (15:01)
[2018-02-22] MEDS: PANTOPRAZOLE 40 MG TAB PO SCH (21:32)
[2018-02-22 22:00] VITALS: BP 151/83
[2018-02-23] MEDS: HYDROcodone-ACET 5/325MG TAB PO PRN ×3 (01:16→21:35)
[2018-02-23] MEDS: SODIUM CHLORIDE 0.9% 1,000 ML IV SCH (02:45)
[2018-02-23 04:00] VITALS: BP 153/72
[2018-02-23] MEDS: metroNIDAZOLE 500 MG TAB PO SCH ×3 (05:57→21:33)
[2018-02-23 06:36] LABS: Basophils # (auto) 0.1 uL; Eosinophils # (auto) 0.2 uL; Monocytes # (auto) 1.2 uL
[2018-02-23 06:42] LABS: Basophils % (auto) 0.8 % (0.0-2.0); Eosinophils % (auto) 2.9 % (0.0-7.0); Hematocrit 27.3 % (36.0-46.0); Hemoglobin 8.7 g/dL (12.2-16.2); Lymphocytes # (auto) 2.4 uL; Lymphocytes % (auto) 29.5 % (10.0-50.0); Mean Corpuscular Hgb Conc. 31.9 g/dL (32.0-36.0); Mean Corpuscular Volume 81.5 fL (80.0-100.0); Monocytes % (auto) 14.7 % (0.0-12.0); Neutrophils # (auto) 4.3 uL; Neutrophils % (auto) 52.1 % (37.0-80.0); Nucleated Red Blood Cells % 0.6 %; Platelet Count (auto) 605 10^3/uL (140-450); Red Blood Cells 3.35 10^6/uL (4.0-5.20); White Blood Cell 8.2 10^3/uL (4.4-10.8)
[2018-02-23 06:46] LABS: Red Cell Distribution Width 22.2 % (11.8-14.3)
[2018-02-23 06:58] LABS: Calcium 7.8 mg/dL (8.5-10.1); Magnesium 1.7 mg/dL (1.6-2.6); Potassium 3.1 mmol/L (3.5-5.1)
[2018-02-23] MEDS: IPRATROPIUM BROM 0.5 MG/2.5ML INH SOL NEB PRN (07:09)
[2018-02-23 09:00] VITALS: BP 156/87
[2018-02-23] MEDS: FOLIC ACID 1 MG TAB PO SCH (09:20)
[2018-02-23] MEDS: ENOXAPARIN SOD 40 MG/0.4 ML SYRINGE SC SCH (09:21)
[2018-02-23] MEDS: cefTRIAXone 1GM/10ml IVPUSH 10 ML IV SCH (09:21)
[2018-02-23] MEDS: PANTOPRAZOLE 40 MG TAB PO SCH ×2 (09:21→21:34)
[2018-02-23] MEDS ORDERED: MAGNESIUM SULFATE 1GM/100ML 100 ML IV ONE (11:15)
[2018-02-23] MEDS ORDERED: POTASSIUM CHL 20 Meq TABLET PO ONE (11:15)
[2018-02-23] MEDS: SODIUM FERR GLUC 62.5MG/5ML 125 MG in SODIUM CHL 0.9% 100 ML IV SCH (12:07)
[2018-02-23 13:00] VITALS: BP 134/74
[2018-02-23 17:00] VITALS: BP 152/92
[2018-02-23 21:38] VITALS: BP 152/75
[2018-02-24] MEDS: HYDROcodone-ACET 5/325MG TAB PO PRN ×3 (03:24→16:03)
[2018-02-24 04:46] VITALS: BP 138/76
[2018-02-24] MEDS: metroNIDAZOLE 500 MG TAB PO SCH ×2 (05:45→14:29)
[2018-02-24 06:53] LABS: Hemoglobin 8.6 g/dL (12.2-16.2)
[2018-02-24 06:56] LABS: Hematocrit 27.3 % (36.0-46.0)
[2018-02-24 07:01] LABS: Magnesium 2.2 mg/dL (1.6-2.6); Potassium 3.3 mmol/L (3.5-5.1)
[2018-02-24] MEDS: IPRATROPIUM BROM 0.5 MG/2.5ML INH SOL NEB PRN (07:57)
[2018-02-24 09:00] VITALS: BP 152/82
[2018-02-24] MEDS: PANTOPRAZOLE 40 MG TAB PO SCH (10:18)
[2018-02-24] MEDS: FOLIC ACID 1 MG TAB PO SCH (10:18)
[2018-02-24] MEDS: ENOXAPARIN SOD 40 MG/0.4 ML SYRINGE SC SCH (10:18)
[2018-02-24] MEDS ORDERED: POTASSIUM CHL 20 Meq TABLET PO ONE (11:45)
[2018-02-24] MEDS ORDERED: PANT40T PO (11:45)
[2018-02-24] MEDS ORDERED: FER325T PO (11:45)
[2018-02-24] MEDS ORDERED: ALBUAER3 IN (11:45)
[2018-02-24 13:00] VITALS: BP 157/90
[2018-02-24] MEDS: SODIUM FERR GLUC 62.5MG/5ML 125 MG in SODIUM CHL 0.9% 100 ML IV SCH (13:19)
[2018-02-24 17:00] VITALS: BP 160/80
== END 2018-02-24 18:15 | disposition home health service (06) | DRG 377 ==
LOC: EDBD 02:15 → ER 02:19 → TELE 02:20 → DOU IN ICU 14:47 → TELE-EAST 02-22 14:12
PROVIDERS: ADMIT Internal Medicine; ATTEND Internal Medicine
PROC: 3E0 Administration, Physiological Systems and Anatomical Regions, Introduction (ICD-10-PCS; principal; 2018-02-16)
PROC: 0DJD8ZZ Inspection of Lower Intestinal Tract, Via Natural or Artificial Opening Endoscopic (ICD-10-PCS; 2018-02-22)
PROC: 0W3P8ZZ Control Bleeding in Gastrointestinal Tract, Via Natural or Artificial Opening Endoscopic (ICD-10-PCS; 2018-02-22 13:10)
DX: K26.4 Chronic or unspecified duodenal ulcer with hemorrhage (principal); I21.4 Non-ST elevation (NSTEMI) myocardial infarction; N17.0 Acute kidney failure with tubular necrosis; G92 Toxic encephalopathy; J96.00 Acute respiratory failure, unspecified whether with hypoxia or hypercapnia; S22.41XA Multiple fractures of ribs, right side, initial encounter for closed fracture; E44.0 Moderate protein-calorie malnutrition; E87.1 Hypo-osmolality and hyponatremia; K66.8 Other specified disorders of peritoneum; E87.6 Hypokalemia; F03.90 Unspecified dementia, unspecified severity, without behavioral disturbance, psychotic disturbance, mood disturbance, and anxiety; F11.10 Opioid abuse, uncomplicated; I12.9 Hypertensive chronic kidney disease with stage 1 through stage 4 chronic kidney disease, or unspecified chronic kidney disease; J32.9 Chronic sinusitis, unspecified; J44.9 Chronic obstructive pulmonary disease, unspecified; N18.9 Chronic kidney disease, unspecified; D50.9 Iron deficiency anemia, unspecified; F13.10 Sedative, hypnotic or anxiolytic abuse, uncomplicated; W18.39XA Other fall on same level, initial encounter; E66.9 Obesity, unspecified; R73.9 Hyperglycemia, unspecified; K29.70 Gastritis, unspecified, without bleeding; K57.90 Diverticulosis of intestine, part unspecified, without perforation or abscess without bleeding; K26.9 Duodenal ulcer, unspecified as acute or chronic, without hemorrhage or perforation; Z90.710 Acquired absence of both cervix and uterus; Z90.81 Acquired absence of spleen; Z91.81 History of falling; Z88.1 Allergy status to other antibiotic agents; Z88.5 Allergy status to narcotic agent; Z88.2 Allergy status to sulfonamides; Z88.8 Allergy status to other drugs, medicaments and biological substances; Z90.49 Acquired absence of other specified parts of digestive tract; Y93.89 Activity, other specified; Y92.89 Other specified places as the place of occurrence of the external cause; Y99.8 Other external cause status; Z23 Encounter for immunization
CPT/HCPCS: 36415; 36600; 43255; 45378; 51702; 70450; 71045; 71260; 73120; 73502; 74176; 74245; 76705; 78452; 80048; 80053; 80061; 80307; 80320; 81001; 82140; 82150; 82270; 82607; 82746; 82805; 82962; 83540; 83550; 83605; 83690; 83735; 83880; 84132; 84443; 84484; 85007; 85014; 85018; 85025; 85027; 85045; 85610; 85730; 86677; 86850; 86900; 86901; 87040; 87081; 87086; 93005; 93017; 93306; 94640; 96361; 96374; 96375; 97110; 97116; 97163; 97530; C9113; J0153; J0696; J2250; J3480; J3490

== ENCOUNTER 2018-06-08 03:19 | Inpatient (IN) | payer MEDICARE ==
[~2018-06-08] VITALS: Ht 170.2 cm; Wt 67.9 kg
[2018-06-08] VITALS (64 sets, daily range): BP systolic 92–136; BP diastolic 32–82
[~2018-06-08 03:19] MED LIST: ALBUAER3 IN; FER325T PO; PANT40T PO
[2018-06-08] MEDS ORDERED: methylPREDNISolone SOD SUCC 125 MG/2 ML VL IV ONE (04:00)
[2018-06-08] MEDS ORDERED: ETOMIDATE (2MG/ML) 20ML VIAL IV ONE ×2 (04:05→04:16)
[2018-06-08] MEDS ORDERED: MIDAZOLAM DRIP 50 mg/50mL 50 ML IV ONE (04:06)
[2018-06-08] MEDS ORDERED: SUCCINYLCHOLINE CHLORIDE 20 MG/ML 10ML VIAL IV ONE ×2 (04:06→04:17)
[2018-06-08 04:10] LABS: Basophils # (auto) 0.2 uL; Eosinophils # (auto) 0.9 uL; Eosinophils % (auto) 8.9 % (0.0-7.0); Hemoglobin 13.6 g/dL (12.2-16.2); Lymphocytes # (auto) 3.8 uL; Lymphocytes % (auto) 38.6 % (10.0-50.0); Mean Corpuscular Hemoglobin 31.4 pg (28.0-32.0); Mean Corpuscular Hgb Conc. 33.1 g/dL (32.0-36.0); Mean Corpuscular Volume 94.7 fL (80.0-100.0); Monocytes # (auto) 0.9 uL; Monocytes % (auto) 8.9 % (0.0-12.0); Neutrophils # (auto) 4.1 uL; Neutrophils % (auto) 41.6 % (37.0-80.0); Nucleated Red Blood Cells % 0.1 %; Platelet Count (auto) 427 10^3/uL (140-450); Red Blood Cells 4.33 10^6/uL (4.0-5.20); Red Cell Distribution Width 16.7 % (11.8-14.3); White Blood Cell 9.9 10^3/uL (4.4-10.8)
[2018-06-08] MEDS: MIDAZOLAM DRIP 50 mg/50mL 50 ML IV SCH ×4 (04:30→21:26)
[2018-06-08] MEDS ORDERED: PROPOFOL 100 ML IV ONE (04:32)
[2018-06-08] MEDS: PROPOFOL 100 ML IV SCH ×2 (04:45→16:08)
[2018-06-08 04:51] LABS: Chloride 102 mmol/L (98-107); Potassium 3.6 mmol/L (3.5-5.1); Sodium 134 mmol/L (136-145)
[2018-06-08] MEDS ORDERED: NOREPINEPHRINE 8 MG/250ML KIT 250 ML IV ONE (04:52)
[2018-06-08 04:57] LABS: Alanine Aminotransferase 6 U/L (13-56); Albumin 3.2 g/dL (3.4-5.0); Anion Gap 9 (5-15); Aspartate Aminotransferase 16 U/L (15-37); BUN/Creatinine Ratio 12.5; Blood Urea Nitrogen 8 mg/dL (7-18); Calcium 8.5 mg/dL (8.5-10.1); Carbon Dioxide 23 mmol/L (21-32); GFR African American 117 mL/min; GFR Non-African American 97 mL/min; Glucose 124 mg/dL (74-106); Magnesium 2.1 mg/dL (1.6-2.6)
[2018-06-08 05:01] LABS: Alkaline Phosphatase 84 U/L (45-117); Bilirubin, Total 0.6 mg/dL (0.2-1.0); Total Protein 7.3 g/dL (6.4-8.2)
[2018-06-08] MEDS ORDERED: FUROSEMIDE 20 MG/2 ML VIAL IV ONE (05:15)
[2018-06-08] MEDS: NOREPINEPHRINE 8 MG/250ML KIT 250 ML IV SCH (05:16)
[2018-06-08] MEDS ORDERED: ONDANSETRON HCL 4 MG/2 ML VIAL IV PRN (06:00)
[2018-06-08] MEDS ORDERED: MORPHINE SULFATE 4 MG/ML SYR/VIAL IV PRN (06:00)
[2018-06-08] MEDS ORDERED: NITROGLYCERIN 0.4 MG SL TAB SL PRN (06:00)
[2018-06-08] MEDS ORDERED: SODIUM CHLORIDE 0.9% 1,000 ML IV SCH (06:00)
[2018-06-08 06:59] LABS: Lactic Acid w/Reflex 3.3 mmol/L (0.4-2.0)
[2018-06-08] MEDS ORDERED: VANCOMYCIN PER PHARMACY 0 MG IV SCH (07:30)
[2018-06-08] MEDS ORDERED: IOHEXOL 350 MG/ML 100ML IJ ONE (07:33)
[2018-06-08] MEDS: fentaNYL Drip 2500mCg/250mlNS 250 ML IV SCH (07:41)
[2018-06-08] MEDS ORDERED: SODIUM CHLORIDE 0.9% 1,000 ML IV ONE (08:15)
[2018-06-08] MEDS: VANCOMYCIN 1,250 MG in D5W 5% 250 ML IV SCH (09:21)
[2018-06-08] MEDS: ENOXAPARIN SOD 40 MG/0.4 ML SYRINGE SC SCH (09:21)
[2018-06-08] MEDS ORDERED: methylPREDNISolone SOD SUCC 125 MG/2 ML VL IV SCH (10:00)
[2018-06-08] MEDS ORDERED: PANTOPRAZOLE 40 MG/10 ML VIAL IV SCH (10:00)
[2018-06-08] MEDS: IPRATROPIUM BROM 0.5 MG/2.5ML INH SOL NEB PRN (10:15)
[2018-06-08] MEDS: ALBUTEROL SULF 2.5 MG/0.5ML(0.5%) NEB SOLN NEB PRN (10:15)
[2018-06-08] MEDS: SODIUM CHLORIDE 0.9% 1,000 ML IV SCH (14:43)
[2018-06-08] MEDS ORDERED: PERCOT PO (15:21)
[2018-06-08] MEDS ORDERED: HYDR-4683 PO (15:21)
[2018-06-08] MEDS ORDERED: CARB25TA3 PO (15:21)
[2018-06-08 20:21] LABS: Urine Bacteria NONE SEEN /hpf (None Seen); Urine Blood Negative /uL (Negative); Urine Specific Gravity 1.048 (1.001-1.035); Urine WBC 7 /hpf (0 - 5)
[2018-06-08] MEDS: PANTOPRAZOLE 40 MG/10 ML VIAL IV SCH (22:02)
[2018-06-08] MEDS: methylPREDNISolone SOD SUCC 40 MG/ML VL IV SCH (22:03)
[2018-06-09] VITALS (98 sets, daily range): BP systolic 103–189; BP diastolic 53–123
[2018-06-09] MEDS: SODIUM CHLORIDE 0.9% 1,000 ML IV SCH ×3 (00:45→13:10)
[2018-06-09] MEDS: MIDAZOLAM DRIP 50 mg/50mL 50 ML IV SCH (00:48)
[2018-06-09] MEDS: IPRATROPIUM BROM 0.5 MG/2.5ML INH SOL NEB PRN ×4 (02:43→18:53)
[2018-06-09] MEDS: ALBUTEROL SULF 2.5 MG/0.5ML(0.5%) NEB SOLN NEB PRN ×4 (02:43→18:53)
[2018-06-09 03:56] LABS: Basophils # (auto) 0 uL; Eosinophils # (auto) 0 uL; Hematocrit 37.9 % (36.0-46.0); Hemoglobin 12.3 g/dL (12.2-16.2); Lymphocytes # (auto) 1.2 uL; Lymphocytes % (auto) 7.3 % (10.0-50.0); Mean Corpuscular Hemoglobin 30.6 pg (28.0-32.0); Mean Corpuscular Hgb Conc. 32.6 g/dL (32.0-36.0); Monocytes # (auto) 0.3 uL; Monocytes % (auto) 1.6 % (0.0-12.0); Neutrophils # (auto) 14.8 uL; Neutrophils % (auto) 91.1 % (37.0-80.0); Platelet Count (auto) 406 10^3/uL (140-450); Red Blood Cells 4.04 10^6/uL (4.0-5.20); Red Cell Distribution Width 16.7 % (11.8-14.3); White Blood Cell 16.2 10^3/uL (4.4-10.8)
[2018-06-09] MEDS: VANCOMYCIN 1,250 MG in D5W 5% 250 ML IV SCH ×2 (04:02→19:42)
[2018-06-09 04:25] LABS: Albumin 2.8 g/dL (3.4-5.0); BUN/Creatinine Ratio 21.4; Calcium 8.6 mg/dL (8.5-10.1); Potassium 4.1 mmol/L (3.5-5.1)
[2018-06-09 04:27] LABS: Bilirubin, Total 0.6 mg/dL (0.2-1.0); Total Protein 6.4 g/dL (6.4-8.2)
[2018-06-09] MEDS: NOREPINEPHRINE 8 MG/250ML KIT 250 ML IV SCH (06:12)
[2018-06-09] MEDS: fentaNYL Drip 2500mCg/250mlNS 250 ML IV SCH (07:41)
[2018-06-09] MEDS: PANTOPRAZOLE 40 MG/10 ML VIAL IV SCH ×2 (10:12→21:22)
[2018-06-09] MEDS: methylPREDNISolone SOD SUCC 40 MG/ML VL IV SCH ×2 (10:13→21:22)
[2018-06-09] MEDS: ENOXAPARIN SOD 40 MG/0.4 ML SYRINGE SC SCH (10:13)
[2018-06-09] MEDS: DOXYCYCLINE 100MG/250ML 250 ML IV SCH ×2 (13:17→21:22)
[2018-06-09] MEDS: LABETALOL HCL 5 MG/ML ML 20ML VIAL IV PRN ×2 (18:19→22:21)
[2018-06-10] VITALS (48 sets, daily range): BP systolic 116–174; BP diastolic 59–111
[2018-06-10] MEDS: LABETALOL HCL 5 MG/ML ML 20ML VIAL IV PRN ×2 (02:36→06:36)
[2018-06-10] MEDS: ACETAMINOPHEN 325 MG TAB PO PRN ×2 (02:40→11:16)
[2018-06-10 03:58] LABS: Basophils # (auto) 0 uL; Basophils % (auto) 0.2 % (0.0-2.0); Eosinophils # (auto) 0 uL; Eosinophils % (auto) 0.1 % (0.0-7.0); Hematocrit 38.6 % (36.0-46.0); Lymphocytes # (auto) 1.4 uL; Mean Corpuscular Hemoglobin 31.5 pg (28.0-32.0); Mean Corpuscular Hgb Conc. 33.6 g/dL (32.0-36.0); Mean Corpuscular Volume 93.8 fL (80.0-100.0); Monocytes # (auto) 0.8 uL; Monocytes % (auto) 4.2 % (0.0-12.0); Neutrophils # (auto) 17.1 uL; Neutrophils % (auto) 88.5 % (37.0-80.0); Platelet Count (auto) 394 10^3/uL (140-450); Red Blood Cells 4.11 10^6/uL (4.0-5.20); Red Cell Distribution Width 16.3 % (11.8-14.3); White Blood Cell 19.4 10^3/uL (4.4-10.8)
[2018-06-10 04:12] LABS: BUN/Creatinine Ratio 27.4; Calcium 8.6 mg/dL (8.5-10.1); Potassium 3.4 mmol/L (3.5-5.1)
[2018-06-10] MEDS: IPRATROPIUM BROM 0.5 MG/2.5ML INH SOL NEB PRN (04:16)
[2018-06-10] MEDS: ALBUTEROL SULF 2.5 MG/0.5ML(0.5%) NEB SOLN NEB PRN (04:16)
[2018-06-10] MEDS: MIDAZOLAM DRIP 50 mg/50mL 50 ML IV SCH (04:24)
[2018-06-10] MEDS: SODIUM CHLORIDE 0.9% 1,000 ML IV SCH (06:10)
[2018-06-10] MEDS: methylPREDNISolone SOD SUCC 40 MG/ML VL IV SCH ×2 (09:53→22:05)
[2018-06-10] MEDS: PANTOPRAZOLE 40 MG/10 ML VIAL IV SCH (09:53)
[2018-06-10] MEDS: DOXYCYCLINE 100MG/250ML 250 ML IV SCH ×2 (09:54→22:05)
[2018-06-10] MEDS: ENOXAPARIN SOD 40 MG/0.4 ML SYRINGE SC SCH (09:54)
[2018-06-10] MEDS ORDERED: PANTOPRAZOLE 40 MG TAB PO ONE (13:45)
[2018-06-10] MEDS ORDERED: POTASSIUM CHLORIDE 8 MEQ TAB PO ONE (13:45)
[2018-06-10] MEDS ORDERED: DOCUSATE SOD 100 MG CAP PO ONE (13:45)
[2018-06-10] MEDS ORDERED: hydrALAZINE HCL 20 MG/ML VL IV PRN (13:45)
[2018-06-10] MEDS: VANCOMYCIN 1,250 MG in D5W 5% 250 ML IV SCH (14:51)
[2018-06-10] MEDS: HYDROcodone-ACET 5/325MG TAB PO PRN ×2 (14:52→22:37)
[2018-06-10] MEDS: DOCUSATE SOD 100 MG CAP PO SCH (22:00)
[2018-06-10] MEDS ORDERED: ONDANSETRON HCL 4 MG/2 ML VIAL IV PRN (22:30)
[2018-06-11 05:00] VITALS: BP 137/72
[2018-06-11 06:11] LABS: Basophils # (auto) 0 uL; Basophils % (auto) 0.1 % (0.0-2.0); Eosinophils # (auto) 0 uL; Hematocrit 39.3 % (36.0-46.0); Hemoglobin 13.4 g/dL (12.2-16.2); Lymphocytes # (auto) 0.9 uL; Mean Corpuscular Hemoglobin 31.9 pg (28.0-32.0); Mean Corpuscular Hgb Conc. 34.1 g/dL (32.0-36.0); Mean Corpuscular Volume 93.7 fL (80.0-100.0); Monocytes # (auto) 0.5 uL; Monocytes % (auto) 3.9 % (0.0-12.0); Neutrophils # (auto) 11.5 uL; Nucleated Red Blood Cells % 0.1 %; Platelet Count (auto) 385 10^3/uL (140-450); Red Cell Distribution Width 16.3 % (11.8-14.3); White Blood Cell 12.9 10^3/uL (4.4-10.8)
[2018-06-11 07:00] VITALS: BP 141/82
[2018-06-11] MEDS: HYDROcodone-ACET 5/325MG TAB PO PRN ×2 (08:19→20:04)
[2018-06-11] MEDS: VANCOMYCIN 1,250 MG in D5W 5% 250 ML IV SCH (09:04)
[2018-06-11] MEDS: DOCUSATE SOD 100 MG CAP PO SCH ×2 (09:04→21:56)
[2018-06-11] MEDS: methylPREDNISolone SOD SUCC 40 MG/ML VL IV SCH ×2 (09:04→21:51)
[2018-06-11] MEDS: ENOXAPARIN SOD 40 MG/0.4 ML SYRINGE SC SCH (09:04)
[2018-06-11] MEDS: PANTOPRAZOLE 40 MG TAB PO SCH (09:04)
[2018-06-11 10:00] VITALS: BP 141/82
[2018-06-11] MEDS: DOXYCYCLINE 100MG/250ML 250 ML IV SCH ×2 (10:47→21:54)
[2018-06-11 11:44] VITALS: BP 124/71
[2018-06-11] MEDS: ALBUTEROL SULF 2.5 MG/0.5ML(0.5%) NEB SOLN NEB PRN ×2 (12:08→18:14)
[2018-06-11] MEDS: IPRATROPIUM BROM 0.5 MG/2.5ML INH SOL NEB PRN ×2 (12:08→18:14)
[2018-06-11 16:45] VITALS: BP 140/79
[2018-06-11] MEDS: CARBIDOPA W LEVODOPA 25/100mg TABLET PO SCH ×2 (16:58→21:53)
[2018-06-11 22:00] VITALS: BP 136/72
[2018-06-12] MEDS: HYDROcodone-ACET 5/325MG TAB PO PRN ×2 (04:11→12:24)
[2018-06-12 04:41] VITALS: BP 147/72
[2018-06-12 05:47] LABS: Basophils # (auto) 0 uL; Basophils % (auto) 0.1 % (0.0-2.0); Eosinophils # (auto) 0 uL; Hematocrit 38.1 % (36.0-46.0); Hemoglobin 12.6 g/dL (12.2-16.2); Lymphocytes # (auto) 0.9 uL; Mean Corpuscular Hemoglobin 31.2 pg (28.0-32.0); Mean Corpuscular Hgb Conc. 33.2 g/dL (32.0-36.0); Mean Corpuscular Volume 94.2 fL (80.0-100.0); Monocytes # (auto) 0.6 uL; Monocytes % (auto) 7.8 % (0.0-12.0); Neutrophils # (auto) 6.6 uL; Neutrophils % (auto) 81.1 % (37.0-80.0); Nucleated Red Blood Cells % 0.1 %; Platelet Count (auto) 359 10^3/uL (140-450); Red Blood Cells 4.04 10^6/uL (4.0-5.20); Red Cell Distribution Width 16.2 % (11.8-14.3); White Blood Cell 8.1 10^3/uL (4.4-10.8)
[2018-06-12 06:05] LABS: BUN/Creatinine Ratio 31.3; Calcium 8.2 mg/dL (8.5-10.1); Potassium 4.1 mmol/L (3.5-5.1)
[2018-06-12] MEDS: CARBIDOPA W LEVODOPA 25/100mg TABLET PO SCH ×3 (06:07→22:00)
[2018-06-12 07:32] VITALS: BP 129/77
[2018-06-12] MEDS: IPRATROPIUM BROM 0.5 MG/2.5ML INH SOL NEB PRN ×2 (08:15→12:21)
[2018-06-12] MEDS: ALBUTEROL SULF 2.5 MG/0.5ML(0.5%) NEB SOLN NEB PRN ×2 (08:15→12:21)
[2018-06-12] MEDS: methylPREDNISolone SOD SUCC 40 MG/ML VL IV SCH (09:36)
[2018-06-12] MEDS: DOXYCYCLINE 100MG/250ML 250 ML IV SCH (09:37)
[2018-06-12] MEDS: PANTOPRAZOLE 40 MG TAB PO SCH (09:37)
[2018-06-12] MEDS: ENOXAPARIN SOD 40 MG/0.4 ML SYRINGE SC SCH (09:37)
[2018-06-12] MEDS: DOCUSATE SOD 100 MG CAP PO SCH ×2 (09:53→20:52)
[2018-06-12 11:22] VITALS: BP 127/73
[2018-06-12] MEDS ORDERED: IPRATROPIUM BROM 0.5 MG/2.5ML INH SOL NEB SCH (16:00)
[2018-06-12] MEDS ORDERED: ALBUTEROL SULF 2.5 MG/0.5ML(0.5%) NEB SOLN NEB SCH (16:00)
[2018-06-12 17:08] VITALS: BP 131/82
[2018-06-12] MEDS: ALBUTEROL SULF 2.5 MG/0.5ML(0.5%) NEB SOLN NEB SCH ×2 (18:35→21:26)
[2018-06-12] MEDS: IPRATROPIUM BROM 0.5 MG/2.5ML INH SOL NEB SCH ×2 (18:35→21:25)
[2018-06-12] MEDS: DOXYCYCLINE 100 MG TAB/CAP PO SCH (20:53)
[2018-06-12 22:00] VITALS: BP 147/90
[2018-06-12] MEDS ORDERED: diphenhdrAMINE HCL 25 MG CAP PO PRN (22:30)
[2018-06-13] MEDS: HYDROcodone-ACET 5/325MG TAB PO PRN ×2 (00:55→11:11)
[2018-06-13] MEDS: ALBUTEROL SULF 2.5 MG/0.5ML(0.5%) NEB SOLN NEB SCH ×5 (02:00→18:39)
[2018-06-13] MEDS: IPRATROPIUM BROM 0.5 MG/2.5ML INH SOL NEB SCH ×5 (02:00→18:40)
[2018-06-13 05:00] VITALS: BP 139/75
[2018-06-13] MEDS: CARBIDOPA W LEVODOPA 25/100mg TABLET PO SCH ×2 (06:46→13:52)
[2018-06-13 09:00] VITALS: BP 114/63
[2018-06-13] MEDS: DOCUSATE SOD 100 MG CAP PO SCH (09:26)
[2018-06-13] MEDS: DOXYCYCLINE 100 MG TAB/CAP PO SCH (09:27)
[2018-06-13] MEDS: PANTOPRAZOLE 40 MG TAB PO SCH (09:27)
[2018-06-13] MEDS: ENOXAPARIN SOD 40 MG/0.4 ML SYRINGE SC SCH (09:27)
[2018-06-13] MEDS ORDERED: predniSONE 20 MG TAB PO SCH (10:00)
[2018-06-13 13:00] VITALS: BP 126/70
[2018-06-13] MEDS ORDERED: SACC250C PO (15:43)
[2018-06-13] MEDS ORDERED: DOX100T PO (15:43)
[2018-06-13 16:44] VITALS: BP 126/70
[2018-06-13 17:00] VITALS: BP 154/83
== END 2018-06-13 19:15 | disposition home health service (06) | DRG 871 ==
LOC: EDBD 03:19 → ER 03:23 → TELE 06:00 → ICU WEST 08:51 → TELE-WESTW 06-10 17:35
PROVIDERS: ADMIT Nurse Practitioner; ATTEND Internal Medicine
PROC: 5A1945Z Respiratory Ventilation, 24-96 Consecutive Hours (ICD-10-PCS; principal; 2018-06-08)
PROC: 0BH17EZ Insertion of Endotracheal Airway into Trachea, Via Natural or Artificial Opening (ICD-10-PCS; 2018-06-08)
PROC: 02HV33Z Insertion of Infusion Device into Superior Vena Cava, Percutaneous Approach (ICD-10-PCS; 2018-06-08)
DX: A41.01 Sepsis due to Methicillin susceptible Staphylococcus aureus (principal); J96.00 Acute respiratory failure, unspecified whether with hypoxia or hypercapnia; J69.0 Pneumonitis due to inhalation of food and vomit; J15.211 Pneumonia due to Methicillin susceptible Staphylococcus aureus; J44.1 Chronic obstructive pulmonary disease with (acute) exacerbation; J44.0 Chronic obstructive pulmonary disease with (acute) lower respiratory infection; J45.901 Unspecified asthma with (acute) exacerbation; E87.6 Hypokalemia; I10 Essential (primary) hypertension; T38.0X5A Adverse effect of glucocorticoids and synthetic analogues, initial encounter; Z87.11 Personal history of peptic ulcer disease; Y92.89 Other specified places as the place of occurrence of the external cause; Z90.49 Acquired absence of other specified parts of digestive tract; Z90.710 Acquired absence of both cervix and uterus; Z88.1 Allergy status to other antibiotic agents; Z88.2 Allergy status to sulfonamides; Z88.8 Allergy status to other drugs, medicaments and biological substances
CPT/HCPCS: 36415; 36600; 71045; 71046; 71275; 80048; 80053; 80202; 81001; 82805; 83036; 83605; 83735; 83880; 84132; 84484; 85025; 85379; 87070; 87077; 87081; 87086; 87186; 87205; 87804; 93005; 93970; 94002; 94003; 94640; 94660; 96374; 96375; 97116; 97163; 97530; A4618; C9113; G0378; J0330; J2250; J2405; J2704; J3490; J7060

== ENCOUNTER → 2018-10-30 | Outpatient (CLI) | payer MEDICARE ==
[~2018-10-30] MED LIST changes: +CARB25TA3 PO; -FER325T PO; +HYDR-4683 PO; +RASA0.5T PO; +TEMA7.5C11 PO
[2018-10-30 15:43] LABS: Albumin 3.2 g/dL (3.4-5.0); Calcium 8.6 mg/dL (8.5-10.1); Potassium 3.6 mmol/L (3.5-5.1)
[2018-10-30 15:49] LABS: Bilirubin, Total 0.5 mg/dL (0.2-1.0)
[2018-10-30 15:58] LABS: Free T4 (Free Thyroxine) 0.96 ng/dL (0.89-1.76)
[2018-10-30 16:05] LABS: Urine Bacteria FEW /hpf (None Seen); Urine Blood Negative /uL (Negative); Urine Specific Gravity 1.013 (1.001-1.035); Urine WBC 18 /hpf (0 - 5)
[2018-10-30 16:25] LABS: INR 0.95 (0.9-1.15); Partial Thromboplastin Time 28.1 sec (23.78-33.04); Prothrombin Time 10.2 sec (9.27-12.13)
[2018-10-30 16:30] LABS: Hematocrit 40.3 % (36.0-46.0); Hemoglobin 13.1 g/dL (12.2-16.2); Mean Corpuscular Hemoglobin 29.8 pg (28.0-32.0); Mean Corpuscular Hgb Conc. 32.5 g/dL (32.0-36.0); Mean Corpuscular Volume 91.9 fL (80.0-100.0); Platelet Count (auto) 323 10^3/uL (140-450); Red Blood Cells 4.39 10^6/uL (4.0-5.20); Red Cell Distribution Width 18.1 % (11.8-14.3); White Blood Cell 6.2 10^3/uL (4.4-10.8)
[2018-10-30 16:39] LABS: Band Neutrophils % (manual) 0; Basophils % (manual) 0 (0.0-2.0); Blast Cells 0; Metamyelocytes % 0; Myelocytes % 0; Promyelocytes % 0
[2018-10-30 18:57] LABS: Eosinophils % (manual) 4 (0-7); Lymphocytes % (manual) 30 (10.0-50.0); Monocytes % (manual) 9 (0-12); Reactive Lymphocytes 14
[2018-10-31 13:56] LABS: Folate (Folic Acid) 4.86 ng/mL (5.38-24)
== END | disposition home or self-care (01) ==
LOC: LAB 14:49
PROVIDERS: ATTEND Internal Medicine
DX: I10 Essential (primary) hypertension (principal); R55 Syncope and collapse
CPT/HCPCS: 36415; 80053; 81001; 82607; 82746; 84439; 84443; 85007; 85027; 85610; 85730

== ENCOUNTER 2018-12-25 14:11 | Emergency (ER) | payer MEDICARE ==
[~2018-12-25] VITALS: Ht 162.6 cm; Wt 49.9 kg
[~2018-12-25 14:11] MED LIST changes: -ALBUAER3 IN; -HYDR-4683 PO; -PANT40T PO; -RASA0.5T PO; -TEMA7.5C11 PO
[2018-12-25 14:53] LABS: Eosinophils # (auto) 0.3 uL; Monocytes # (auto) 0.4 uL; Neutrophils # (auto) 5.9 uL; Red Blood Cells 4.42 10^6/uL (4.0-5.20); Red Cell Distribution Width 17.4 % (11.8-14.3)
[2018-12-25 14:57] LABS: Basophils # (auto) 0.3 uL; Basophils % (auto) 3.7 % (0.0-2.0); Eosinophils % (auto) 3.5 % (0.0-7.0); Hematocrit 40.6 % (36.0-46.0); Hemoglobin 13.1 g/dL (12.2-16.2); Lymphocytes # (auto) 1.7 uL; Lymphocytes % (auto) 19.3 % (10.0-50.0); Mean Corpuscular Hemoglobin 29.5 pg (28.0-32.0); Mean Corpuscular Hgb Conc. 32.2 g/dL (32.0-36.0); Mean Corpuscular Volume 91.8 fL (80.0-100.0); Monocytes % (auto) 4.5 % (0.0-12.0); Nucleated Red Blood Cells % 0.2 %; Platelet Count (auto) 518 10^3/uL (140-450); White Blood Cell 8.6 10^3/uL (4.4-10.8)
[2018-12-25 15:10] LABS: Albumin 2.6 g/dL (3.4-5.0); Anion Gap 11 (5-15); Blood Urea Nitrogen 13 mg/dL (7-18); Calcium 8.8 mg/dL (8.5-10.1); Carbon Dioxide 20 mmol/L (21-32); Chloride 109 mmol/L (98-107); Glucose 128 mg/dL (74-106); Sodium 140 mmol/L (136-145)
[2018-12-25 15:12] LABS: Alanine Aminotransferase 9 U/L (13-56); Aspartate Aminotransferase 29 U/L (15-37); BUN/Creatinine Ratio 13.5; GFR African American 73 mL/min; GFR Non-African American 61 mL/min
[2018-12-25 15:14] LABS: Alkaline Phosphatase 74 U/L (45-117); Bilirubin, Total 0.6 mg/dL (0.2-1.0); Total Protein 7.5 g/dL (6.4-8.2)
[2018-12-25] MEDS ORDERED: methylPREDNISolone SOD SUCC 125 MG/2 ML VL ONE (17:09)
[2018-12-25] MEDS ORDERED: IPRATROPIUM BROM 0.5 MG/2.5ML INH SOL NEB ONE (17:15)
[2018-12-25] MEDS ORDERED: ALBUTEROL SULF 2.5 MG/0.5ML(0.5%) NEB SOLN NEB ONE (17:15)
[2018-12-25] MEDS ORDERED: methylPREDNISolone SOD SUCC 125 MG/2 ML VL IV ONE (17:15)
[2018-12-25 17:30] LABS: Urine Bacteria NONE SEEN /hpf (None Seen); Urine Blood Negative /uL (Negative); Urine WBC 1 /hpf (0 - 5)
[2018-12-25 18:07] VITALS: BP 156/79
== END 2018-12-25 18:16 | disposition home or self-care (01) ==
LOC: EDBD 14:11 → ER 14:17
DX: R55 Syncope and collapse (principal); E46 Unspecified protein-calorie malnutrition; J44.9 Chronic obstructive pulmonary disease, unspecified; E78.5 Hyperlipidemia, unspecified; I10 Essential (primary) hypertension; Z90.89 Acquired absence of other organs; Z90.710 Acquired absence of both cervix and uterus; Z88.1 Allergy status to other antibiotic agents; Z88.2 Allergy status to sulfonamides; Z88.0 Allergy status to penicillin; Z88.6 Allergy status to analgesic agent
CPT/HCPCS: 36415; 70450; 71045; 80053; 81001; 83735; 84484; 85025; 93005; 94640; 96374; 99284; J2930; J7611; J7644

== ENCOUNTER 2019-03-28 05:27 | Inpatient (IN) | payer MEDICARE ==
[~2019-03-28] VITALS: Ht 160 cm; Wt 73.9 kg
[2019-03-28 06:36] LABS: Basophils # (auto) 0.1 uL; Basophils % (auto) 0.5 % (0.0-2.0); Eosinophils % (auto) 6.8 % (0.0-7.0); Hematocrit 40.1 % (36.0-46.0); Hemoglobin 13.7 g/dL (12.2-16.2); Lymphocytes % (auto) 26.4 % (10.0-50.0); Mean Corpuscular Hemoglobin 32.4 pg (28.0-32.0); Mean Corpuscular Hgb Conc. 34.1 g/dL (32.0-36.0); Mean Corpuscular Volume 95.1 fL (80.0-100.0); Monocytes # (auto) 0.8 uL; Monocytes % (auto) 5.5 % (0.0-12.0); Neutrophils # (auto) 9.2 uL; Neutrophils % (auto) 60.8 % (37.0-80.0); Platelet Count (auto) 365 10^3/uL (140-450); Red Blood Cells 4.21 10^6/uL (4.0-5.20); Red Cell Distribution Width 15.7 % (11.8-14.3); White Blood Cell 15.1 10^3/uL (4.4-10.8)
[2019-03-28 07:02] LABS: Albumin 3.6 g/dL (3.4-5.0); Anion Gap 7 (5-15); Blood Urea Nitrogen 14 mg/dL (7-18); Calcium 9.2 mg/dL (8.5-10.1); Carbon Dioxide 22 mmol/L (21-32); Chloride 105 mmol/L (98-107); Glucose 80 mg/dL (74-106); Potassium 4.7 mmol/L (3.5-5.1); Sodium 134 mmol/L (136-145)
[2019-03-28 07:05] LABS: Alkaline Phosphatase 81 U/L (45-117); Aspartate Aminotransferase 36 U/L (15-37); BUN/Creatinine Ratio 10.5; Bilirubin, Total 0.6 mg/dL (0.2-1.0); GFR African American 50 mL/min; GFR Non-African American 41 mL/min; Total Protein 7.7 g/dL (6.4-8.2)
[2019-03-28 07:07] LABS: Alanine Aminotransferase < 6 U/L (13-56)
[2019-03-28] MEDS ORDERED: methylPREDNISolone SOD SUCC 125 MG/2 ML VL IV ONE (08:45)
[2019-03-28] MEDS ORDERED: VANCOMYCIN 1GM/250ML 250 ML IV ONE (08:45)
[2019-03-28] MEDS ORDERED: ALBUTEROL SULF 2.5 MG/0.5ML(0.5%) NEB SOLN NEB ONE (08:45)
[2019-03-28] MEDS ORDERED: IPRATROPIUM BROM 0.5 MG/2.5ML INH SOL NEB ONE (08:45)
[2019-03-28] MEDS ORDERED: HYDROcodone-ACET 5/325MG TAB PO PRN (09:45)
[2019-03-28] MEDS ORDERED: NITROGLYCERIN 0.4 MG SL TAB SL PRN (09:45)
[2019-03-28] MEDS ORDERED: ONDANSETRON HCL 4 MG/2 ML VIAL IV PRN (09:45)
[2019-03-28] MEDS ORDERED: methylPREDNISolone SOD SUCC 40 MG/ML VL IV SCH (10:00)
[2019-03-28] MEDS ORDERED: guaiFENesin-DM 100/10mg/5ml SYR PO PRN (10:15)
[2019-03-28] MEDS: BUDESONIDE (INHALATION) 0.5 MG/2 ML NEB NEB SCH ×2 (10:45→22:12)
[2019-03-28] MEDS: ALBUTEROL SULF 2.5 MG/0.5ML(0.5%) NEB SOLN NEB SCH ×4 (10:45→22:12)
[2019-03-28] MEDS: IPRATROPIUM BROM 0.5 MG/2.5ML INH SOL NEB SCH ×4 (10:45→22:12)
[2019-03-28] MEDS: FAMOTIDINE 20 MG TAB PO SCH (11:14)
[2019-03-28] MEDS: DOXYCYCLINE 100MG/250ML 250 ML IV SCH ×2 (11:14→22:11)
[2019-03-28 13:48] LABS: Urine Bacteria NONE SEEN /hpf (None Seen); Urine Blood Negative /uL (Negative); Urine Hyaline Cast MANY /lpf (0 - 2); Urine Specific Gravity 1.021 (1.001-1.035); Urine WBC <1 /hpf (0 - 5)
[2019-03-28] MEDS: CARBIDOPA W LEVODOPA 25/100mg TABLET PO SCH ×2 (14:00→22:11)
--- NOTE | 2019-03-28 14:25 | NUR ---
Opening patient in bed, awake, alert to self, birthday, current month, year, and hospital states she came in because her temperature was elevated. Continued with assessment, bed alarm on, will continue to monitor this patient.
[2019-03-28 16:45] VITALS: BP 98/68
[2019-03-28] MEDS ORDERED: HYDR-4833 PO (17:24)
[2019-03-28 17:27] VITALS: BP 110/59
--- NOTE | 2019-03-28 19:22 | NUR ---
RT NOTE PT WAS SEEN BY RT FOR HHN TX. PT TOLERATES WELL VIA MASK. NO ADVERSE REACTION NOTED. CONT ORDERED Addendum: 03/28/19 at 1922 by Stephanie Burleson RT Amended: Links added.
--- NOTE | 2019-03-28 19:25 | NUR ---
RECEIVED PATIENT FROM DAY SHIFT RN. PATIENT RESTING IN BED AND HAVING BREATHING TREATMENT. NO S/S OF DISTRESS NOTED. DENIED PAIN FOR NOW. PATIENT COULD ANSWER QUESTIONS PROPERLY, BUT FORGETFUL. POC INSTRUCTED AND ENCOURAGED PATIENT TO CALL FOR SALVAGE DETERMINER IF NEEDED. BED IN LOWEST POSITION WITH SIDE RAILS UP X 2. ALARM ON. CALL [place] WITHIN REACH. CONTINUE TO MONITOR FOR CHANGES Q1H AND PRN.
--- NOTE | 2019-03-28 20:46 | NUR ---
PATIENT TRYING TO GET OUT OF BED TWICE, STOPPED PATIENT AND REORIENTED PATIENT THAT SHE IS IN HOSPITAL, SHE CAN CALL FOR FORK LIFT MECHANIC. CALL [place] WITHIN REACH. ALARM ON. CONTINUE TO MONITOR
[2019-03-28 22:00] VITALS: BP 103/61
[2019-03-28] MEDS: methylPREDNISolone SOD SUCC 40 MG/ML VL IV SCH (22:12)
--- NOTE | 2019-03-28 22:16 | NUR ---
RT NOTE PT WAS SEEN BY RT FOR HHN TX. PT TOLERATES WELL VIA MASK. NO ADVERSE REACTION NOTED. JUSTUS DELUNA AT BEDSIDE. CONT ORDERED Addendum: 03/28/19 at 2217 by Stephanie Burleson RT Amended: Links added.
--- NOTE | 2019-03-29 02:34 | NUR ---
PATIENT SLEEPING. NO S/S OF DISTRESS NOTED. CONTINUE CARE.
[2019-03-29 05:00] VITALS: BP 116/70
--- NOTE | 2019-03-29 05:54 | NUR ---
Respiratory note: Pt refusing scheduled medneb tx. Pt says she wants to sleep and doesn't want tx at this time. No s/s of respiratory distress noted. Advised pt to call for RT if she changes her mind. Will return for next scheduled tx.
[2019-03-29] MEDS: ALBUTEROL SULF 2.5 MG/0.5ML(0.5%) NEB SOLN NEB SCH ×5 (05:55→23:11)
[2019-03-29] MEDS: IPRATROPIUM BROM 0.5 MG/2.5ML INH SOL NEB SCH ×5 (05:55→23:11)
[2019-03-29] MEDS: CARBIDOPA W LEVODOPA 25/100mg TABLET PO SCH ×3 (06:06→21:42)
--- NOTE | 2019-03-29 06:06 | NUR ---
ASSISTED PATIENT FOR BEDPAN. PATIENT TOLERATED WELL. CONTINUE TO MONITOR.
[2019-03-29 06:15] LABS: Basophils # (auto) 0 uL; Basophils % (auto) 0.3 % (0.0-2.0); Eosinophils # (auto) 0 uL; Hematocrit 36.7 % (36.0-46.0); Hemoglobin 12.6 g/dL (12.2-16.2); Lymphocytes # (auto) 1.3 uL; Lymphocytes % (auto) 14.6 % (10.0-50.0); Mean Corpuscular Hemoglobin 32.5 pg (28.0-32.0); Mean Corpuscular Hgb Conc. 34.2 g/dL (32.0-36.0); Monocytes # (auto) 0.2 uL; Monocytes % (auto) 1.8 % (0.0-12.0); Neutrophils # (auto) 7.7 uL; Neutrophils % (auto) 83.3 % (37.0-80.0); Platelet Count (auto) 362 10^3/uL (140-450); Red Blood Cells 3.86 10^6/uL (4.0-5.20); Red Cell Distribution Width 15.7 % (11.8-14.3); White Blood Cell 9.3 10^3/uL (4.4-10.8)
[2019-03-29 06:28] LABS: Potassium 3.4 mmol/L (3.5-5.1)
[2019-03-29 06:37] LABS: BUN/Creatinine Ratio 16.3; Calcium 9.5 mg/dL (8.5-10.1)
--- NOTE | 2019-03-29 07:45 | NUR ---
Opening Patient asleep in bed, bed in lowest position, call light within reach. No distress noted at this time. WIll f/u with morning assessment. pending mrsa, influenza a & b swab, respiratory culture will continue to monitor this patient
[2019-03-29 09:00] VITALS: BP 134/80
[2019-03-29] MEDS: methylPREDNISolone SOD SUCC 40 MG/ML VL IV SCH ×2 (10:55→21:42)
[2019-03-29] MEDS: BUDESONIDE (INHALATION) 0.5 MG/2 ML NEB NEB SCH ×2 (10:56→18:58)
[2019-03-29] MEDS: FAMOTIDINE 20 MG TAB PO SCH (10:56)
[2019-03-29] MEDS: DOXYCYCLINE 100MG/250ML 250 ML IV SCH ×2 (10:56→21:42)
[2019-03-29 13:00] VITALS: BP 112/60
--- NOTE | 2019-03-29 15:48 | NUR ---
NURSE NOTE PATIENT FAMILY/ROLL CONTOUR GRINDER STATES THAT THEY ARE MISSING A RED AND BLACK WALKER WITH A CHAIR, CALLING ER AND EVS FOR LOST AND FOUND
--- NOTE | 2019-03-29 15:51 | NUR ---
NURSE NOTE TALKED TO THE HEAD OF THE LOST AND FOUND/EVS HE STATES TO HAVE SECURITY CHECK OUT THE CAMERAS FOR AROUND TIME OF ADMISSION OF THIS PATIENT, TO CHECK TO SEE IF WALKER WAS WITH PATIENT DURING TRANSITION, OR OTHERWISE NOTED.
[2019-03-29] MEDS: ACETAMINOPHEN 500 MG TAB PO PRN (16:00)
[2019-03-29] MEDS ORDERED: POTASSIUM CHL 10 Meq TABLET PO ONE (16:15)
[2019-03-29 16:57] VITALS: BP 143/79
--- NOTE | 2019-03-29 19:30 | NUR ---
Opening Shift Note Assumed care of patient. Patient is awake and alert. No S/S of distress/SOB or pain. Instructed on POC and to call for assist PRN, will continue to monitor for changes. Bed locked in lowest position and bed rails up x2. Call light within reach.
[2019-03-29 22:00] VITALS: BP 128/62
--- NOTE | 2019-03-29 22:30 | NUR ---
New IV placed in left forearm, 22G, intact and patent with no s/s of pain or discomfort
[2019-03-30 05:00] VITALS: BP 135/78
[2019-03-30] MEDS: IPRATROPIUM BROM 0.5 MG/2.5ML INH SOL NEB SCH ×5 (06:12→22:05)
[2019-03-30] MEDS: ALBUTEROL SULF 2.5 MG/0.5ML(0.5%) NEB SOLN NEB SCH ×5 (06:12→22:06)
[2019-03-30] MEDS: CARBIDOPA W LEVODOPA 25/100mg TABLET PO SCH ×3 (06:17→21:37)
--- NOTE | 2019-03-30 07:30 | NUR ---
Opening Shift Note Assumed care of patient, awake, alert, and oriented x4. No S/S of distress/SOB, but patient is reporting headache pain of 6/10. IV left forearm 22 gauge is asymptomatic, intact, patent, and saline locked. Bed is locked and in lowest position and call light is within reach. Instructed on POC and to call for assist PRN, and patient verbalized understanding. Will continue to monitor for changes Q1hr and PRN.
[2019-03-30 09:00] VITALS: BP 119/64
[2019-03-30] MEDS: BUDESONIDE (INHALATION) 0.5 MG/2 ML NEB NEB SCH ×2 (09:47→18:24)
[2019-03-30] MEDS: FAMOTIDINE 20 MG TAB PO SCH (10:16)
[2019-03-30] MEDS: methylPREDNISolone SOD SUCC 40 MG/ML VL IV SCH (10:16)
[2019-03-30] MEDS: DOXYCYCLINE 100MG/250ML 250 ML IV SCH (10:17)
--- NOTE | 2019-03-30 11:30 | NUR ---
Dr. Ho, Hospitalist, at bedside. New orders received.
[2019-03-30] MEDS ORDERED: predniSONE 20 MG TAB PO ONE (11:45)
--- NOTE | 2019-03-30 11:51 | NUR ---
Patient downgrade to Med/Surge; returned cardiac monitor technician to ICU.
[2019-03-30 13:00] VITALS: BP 146/85
[2019-03-30] MEDS: ACETAMINOPHEN 500 MG TAB PO PRN ×2 (14:41→22:56)
[2019-03-30 17:00] VITALS: BP 134/85
--- NOTE | 2019-03-30 18:09 | NUR ---
Patient requests iced tea; called dietary for request and left a message.
--- NOTE | 2019-03-30 19:00 | NUR ---
OPENING NOTE Received report from day shift RN. Patient is A&O X's 4 with no s/s of distress. Educated patient on POC and to use call light when in need of assistance. Patient verbalized understanding. Walker is at bedside, within reach of patient. Bed is in lowest/locked position with side rails up X's 2 and call light is within reach. Bed alarm is on. Will continue care
[2019-03-30] MEDS: DOXYCYCLINE 100 MG TAB/CAP PO SCH (21:36)
[2019-03-30 22:00] VITALS: BP 124/77
[2019-03-31 05:00] VITALS: BP 126/64
[2019-03-31] MEDS: CARBIDOPA W LEVODOPA 25/100mg TABLET PO SCH ×2 (05:30→14:00)
[2019-03-31] MEDS: ALBUTEROL SULF 2.5 MG/0.5ML(0.5%) NEB SOLN NEB SCH ×3 (05:44→14:07)
[2019-03-31] MEDS: BUDESONIDE (INHALATION) 0.5 MG/2 ML NEB NEB SCH (05:45)
[2019-03-31] MEDS: IPRATROPIUM BROM 0.5 MG/2.5ML INH SOL NEB SCH ×3 (05:45→14:07)
--- NOTE | 2019-03-31 07:15 | NUR ---
Opening Shift Note Assumed care of patient, awake, alert, and oriented x4. No S/S of distress/SOB or pain. IV left forearm 22 gauge is asymptomatic, intact, patent, and saline locked. Bed is locked and in lowest position and call light is within reach. Instructed on POC and to call for assist PRN, and patient verbalized understanding. Will continue to monitor for changes Q1hr and PRN.
[2019-03-31 09:00] VITALS: BP 129/78
[2019-03-31] MEDS ORDERED: predniSONE 20 MG TAB PO SCH (10:00)
[2019-03-31] MEDS: FAMOTIDINE 20 MG TAB PO SCH (10:11)
[2019-03-31] MEDS: DOXYCYCLINE 100 MG TAB/CAP PO SCH (10:12)
[2019-03-31] MEDS: ACETAMINOPHEN 500 MG TAB PO PRN (11:39)
--- NOTE | 2019-03-31 14:00 | NUR ---
Dr. Saucedo, Hospitalist, at bedside. New orders received.
--- NOTE | 2019-03-31 14:45 | NUR ---
Discharge instructions given as ordered. Encourage to follow up with PMD as instructed. All questions and concerns addressed. Patient verbalized understanding. Medication reconciliation form completed and copy given to patient. IV removed with catheter intact, pressure dressing applied. Patient taken to vehicle via wheelchair with all personal belongings, accompanied by staff member. No distress noted at time of departure.
== END 2019-03-31 15:05 | disposition home or self-care (01) | DRG 189 ==
LOC: EDBD 05:27 → EDSEX 05:27 → ER 05:30 → TELE 05:31 → TELE-CENTR 13:35 → CENTRAL 03-30 11:53
PROVIDERS: ADMIT Nurse Practitioner Acute Care; ATTEND Internal Medicine
PROC: 5A09357 Assistance with Respiratory Ventilation, Less than 24 Consecutive Hours, Continuous Positive Airway Pressure (ICD-10-PCS; principal; 2019-03-28)
DX: J96.21 Acute and chronic respiratory failure with hypoxia (principal); N17.0 Acute kidney failure with tubular necrosis; J44.1 Chronic obstructive pulmonary disease with (acute) exacerbation; J44.0 Chronic obstructive pulmonary disease with (acute) lower respiratory infection; J45.901 Unspecified asthma with (acute) exacerbation; J20.9 Acute bronchitis, unspecified; N18.3 Chronic kidney disease, stage 3 (moderate); I12.9 Hypertensive chronic kidney disease with stage 1 through stage 4 chronic kidney disease, or unspecified chronic kidney disease; G20 Parkinson's disease; F02.80 Dementia in other diseases classified elsewhere, unspecified severity, without behavioral disturbance, psychotic disturbance, mood disturbance, and anxiety; F32.9 Major depressive disorder, single episode, unspecified; F41.9 Anxiety disorder, unspecified; M19.90 Unspecified osteoarthritis, unspecified site; Z88.1 Allergy status to other antibiotic agents; Z90.710 Acquired absence of both cervix and uterus; Z83.3 Family history of diabetes mellitus; Z88.2 Allergy status to sulfonamides; Z88.5 Allergy status to narcotic agent; Z88.0 Allergy status to penicillin
CPT/HCPCS: 36415; 36600; 70450; 71045; 80048; 80053; 81001; 82805; 83605; 83735; 83880; 84484; 85025; 87040; 87070; 87081; 87086; 87205; 87804; 93005; 94640; 94660; 96365; 96375; G0378; J3490

== ENCOUNTER 2019-09-01 13:15 | Inpatient (IN) | payer MEDICARE ==
[~2019-09-01] VITALS: Ht 157.5 cm; Wt 73.5 kg
[~2019-09-01 13:15] MED LIST changes: +AML5T PO; +HYDR-4833 PO; +LISI10TA6 PO; +MEGE20TA4 PO; +PANT1INJ3 PO
[2019-09-01] MEDS ORDERED: SODIUM CHLORIDE 0.9% 1,000 ML IV ONE ×3 (13:33→16:45)
[2019-09-01 15:09] LABS: Hematocrit 40.8 % (36.0-46.0); Hemoglobin 13.4 g/dL (12.2-16.2); Mean Corpuscular Hgb Conc. 32.8 g/dL (32.0-36.0); Mean Corpuscular Volume 91.6 fL (80.0-100.0); Platelet Count (auto) 347 10^3/uL (140-450); Red Blood Cells 4.46 10^6/uL (4.0-5.20); White Blood Cell 26.4 10^3/uL (4.4-10.8)
[2019-09-01 15:14] LABS: Albumin 3.1 g/dL (3.4-5.0); Anion Gap 10 (5-15); Blood Urea Nitrogen 20 mg/dL (7-18); Calcium 9.2 mg/dL (8.5-10.1); Carbon Dioxide 19 mmol/L (21-32); Chloride 110 mmol/L (98-107); Glucose 93 mg/dL (74-106); Potassium 4.2 mmol/L (3.5-5.1); Sodium 139 mmol/L (136-145)
[2019-09-01 15:15] LABS: INR 1.12 (0.9-1.15); Partial Thromboplastin Time 27.7 sec (23.64-32.05)
[2019-09-01 15:18] LABS: Basophils % (manual) 0 (0.0-2.0); Blast Cells 0; Lactic Acid w/Reflex 2.4 mmol/L (0.4-2.0); Metamyelocytes % 0; Myelocytes % 0; Promyelocytes % 0; Reactive Lymphocytes 0
[2019-09-01 15:20] LABS: Alanine Aminotransferase < 6 U/L (13-56); Alkaline Phosphatase 197 U/L (45-117); Aspartate Aminotransferase 26 U/L (15-37); BUN/Creatinine Ratio 13.8; Bilirubin, Total 1.2 mg/dL (0.2-1.0); GFR African American 45 mL/min; GFR Non-African American 38 mL/min; Total Protein 7.4 g/dL (6.4-8.2)
[2019-09-01] MEDS ORDERED: VANCOMYCIN 1GM/250ML 250 ML IV ONE (16:00)
[2019-09-01 16:38] LABS: Band Neutrophils % (manual) 5; Eosinophils % (manual) 3 (0-7); Lymphocytes % (manual) 10 (10.0-50.0); Monocytes % (manual) 3 (0-12)
[2019-09-01] MEDS: SODIUM CHLORIDE 0.9% 1,000 ML IV SCH (16:45)
[2019-09-01] MEDS ORDERED: NITROGLYCERIN 0.4 MG SL TAB SL PRN (16:45)
[2019-09-01] MEDS ORDERED: ONDANSETRON HCL 4 MG/2 ML VIAL IV PRN (16:45)
[2019-09-01] MEDS ORDERED: MEPERIDINE HCL (25 MG/ML) 1ML VIAL IV PRN (16:45)
[2019-09-01] MEDS ORDERED: MORPHINE SULF INJ 2 MG/ML SYRINGE 1ML IV PRN (16:45)
[2019-09-01] MEDS ORDERED: ACETAMINOPHEN 500 MG TAB PO PRN (16:45)
[2019-09-01] MEDS: FAMOTIDINE (10MG/ML) 2ML VL IV SCH (16:50)
[2019-09-01] MEDS: metroNIDAZOLE 500MG/100ML 100 ML IV SCH (16:56)
--- NOTE | 2019-09-01 17:15 | NUR ---
Telemetry admit from ER: GUERLINE RENEE admitted to Telemetry unit after SBAR received. Patient oriented to RICKEY ANDINO, RN, primary RN, unit, room, bed, and unit policies regarding patient care and visiting hours. Patient now on continuous telemetry monitoring, tele box # 31 and telemetry reading on arrival to unit is SR 70's. Patient placed on bedside oxygen, patient stated estimated weight. All questions and concerns addressed, patient verbalized understanding.
[2019-09-01] MEDS ORDERED: FOLI1TAB6 PO (17:38)
[2019-09-01 17:41] VITALS: BP 104/78
[2019-09-01] MEDS: VANCOMYCIN HCL 125MG/5ML ORAL SOL PO SCH ×2 (18:00→22:00)
[2019-09-01 18:08] VITALS: BP 104/78
--- NOTE | 2019-09-01 18:29 | NUR ---
Patient began to state pain at IV site. During assessment patient stated "pull it out, it hurts so bad." IV removed. IV had infiltrated.
--- NOTE | 2019-09-01 18:39 | NUR ---
Attempted to place new IV at this time. Patient refused, stating "do it later, I need to rest." Will attempt again.
--- NOTE | 2019-09-01 18:42 | NUR ---
NOC charge aware of IV infiltration. ICE pack applied to site.
[2019-09-01] MEDS: HYDROcodone-ACET 5/325MG TAB PO PRN (19:02)
--- NOTE | 2019-09-01 19:02 | NUR ---
Patient states pain level 6/10, in head. Medicated as orders. Patient still refusing IV at this time. Previous IV site reddened, patient states "no pain there."
--- NOTE | 2019-09-01 19:10 | NUR ---
opening note pt A&Ox4. resp are even and non labored on 2Lnc. hayden catheter below bladder, without kinks, and is draining properly to gravity. bed is in low locked position with call light within reach. contact precautions are in place.
--- NOTE | 2019-09-01 19:13 | NUR ---
pt had BM
--- NOTE | 2019-09-01 19:29 | NUR ---
Closing note: Patient resting in bed. No S/S of pain, distress or SOB at this time. Patient has no IV at this time. NOC RN aware. Care endorsed to NOC RN.
[2019-09-01 20:00] VITALS: BP 105/49
--- NOTE | 2019-09-01 21:30 | NUR ---
pt transported by Blaze Fritz and [place] MELENDEZ to Ct and Xray
--- NOTE | 2019-09-01 21:50 | NUR ---
pt back from xray and ct
[2019-09-01 22:00] VITALS: BP 103/49
--- NOTE | 2019-09-01 22:20 | NUR ---
pt had BM
--- NOTE | 2019-09-01 22:30 | NUR ---
22G iv placed at right upper arm by TONYA JEROME
[2019-09-01] MEDS: CARBIDOPA W LEVODOPA 25/100mg TABLET PO SCH (23:08)
[2019-09-02] MEDS: metroNIDAZOLE 500MG/100ML 100 ML IV SCH ×3 (00:45→16:42)
[2019-09-02] MEDS: SODIUM CHLORIDE 0.9% 1,000 ML IV SCH ×3 (01:09→16:42)
[2019-09-02 05:00] VITALS: BP 104/51
[2019-09-02] MEDS: CARBIDOPA W LEVODOPA 25/100mg TABLET PO SCH ×3 (06:16→21:37)
[2019-09-02 06:20] LABS: Hemoglobin 11.7 g/dL (12.2-16.2)
[2019-09-02 06:22] LABS: Hematocrit 37.3 % (36.0-46.0); Mean Corpuscular Hemoglobin 29.4 pg (28.0-32.0); Mean Corpuscular Hgb Conc. 31.4 g/dL (32.0-36.0); Mean Corpuscular Volume 93.5 fL (80.0-100.0); Platelet Count (auto) 348 10^3/uL (140-450); Red Blood Cells 3.99 10^6/uL (4.0-5.20); Red Cell Distribution Width 19.4 % (11.8-14.3); White Blood Cell 25.9 10^3/uL (4.4-10.8)
[2019-09-02 06:33] LABS: Band Neutrophils % (manual) 0; Basophils % (manual) 0 (0.0-2.0); Blast Cells 0; Metamyelocytes % 0; Myelocytes % 0; Promyelocytes % 0; Reactive Lymphocytes 0
[2019-09-02 06:40] LABS: Albumin 2.6 g/dL (3.4-5.0); Anion Gap 9 (5-15); Blood Urea Nitrogen 23 mg/dL (7-18); Calcium 8.6 mg/dL (8.5-10.1); Carbon Dioxide 16 mmol/L (21-32); Chloride 112 mmol/L (98-107); Glucose 76 mg/dL (74-106); Potassium 4.5 mmol/L (3.5-5.1); Sodium 137 mmol/L (136-145)
[2019-09-02 06:45] LABS: Alanine Aminotransferase < 6 U/L (13-56); Alkaline Phosphatase 146 U/L (45-117); Aspartate Aminotransferase 20 U/L (15-37); BUN/Creatinine Ratio 16.5; Bilirubin, Total 0.9 mg/dL (0.2-1.0); GFR African American 48 mL/min; GFR Non-African American 39 mL/min; Total Protein 6.2 g/dL (6.4-8.2)
--- NOTE | 2019-09-02 07:00 | NUR ---
closing note pt resting in semi fowlers position with eyes closed. no s/s of pain or discomfort at this time. resp are even and non labored on 2Lnc. bed is in low locked position, call light within reach.
[2019-09-02] MEDS: VANCOMYCIN HCL 125MG/5ML ORAL SOL PO SCH ×4 (07:13→21:36)
[2019-09-02 07:14] LABS: Eosinophils % (manual) 1 (0-7); Lymphocytes % (manual) 10 (10.0-50.0); Monocytes % (manual) 6 (0-12)
--- NOTE | 2019-09-02 07:40 | NUR ---
Opening Shift Note Assumed care of patient, awake and alert. No S/S of distress/SOB or pain. Updated on POC and instructed to call for assistance as needed, patient verbalized understanding. Bed locked in lowest position, side rails up x2, call light within reach. Will continue to monitor for changes Q1hr and PRN.
[2019-09-02 09:00] VITALS: BP 91/60
[2019-09-02] MEDS: FAMOTIDINE (10MG/ML) 2ML VL IV SCH (10:00)
[2019-09-02] MEDS: DOXYCYCLINE 100MG/250ML 250 ML IV SCH ×2 (11:06→21:37)
--- NOTE | 2019-09-02 11:20 | NUR ---
UA SENT TO LAB
[2019-09-02] MEDS: IPRATROPIUM BROM 0.5 MG/2.5ML INH SOL NEB SCH ×2 (11:51→18:36)
[2019-09-02] MEDS: ALBUTEROL SULF 2.5 MG/0.5ML(0.5%) NEB SOLN NEB SCH ×2 (11:51→18:36)
[2019-09-02 12:22] LABS: Urine Bacteria FEW /hpf (None Seen); Urine Blood 1+ /uL (Negative); Urine Specific Gravity 1.017 (1.001-1.035); Urine WBC 41 /hpf (0 - 5)
[2019-09-02 12:56] VITALS: BP 98/44
[2019-09-02 13:58] VITALS: BP 98/44
--- NOTE | 2019-09-02 14:46 | NUR ---
RAPID INF SWAB SENT TO LAB
[2019-09-02 16:22] VITALS: BP 116/57
[2019-09-02] MEDS: APIXABAN 5 MG TAB PO SCH (21:36)
[2019-09-02] MEDS: FLORASTOR (S. BOULARDII) 250 MG CAP PO SCH (21:37)
[2019-09-02 22:00] VITALS: BP 114/71
[2019-09-02] MEDS: HYDROcodone-ACET 5/325MG TAB PO PRN (23:09)
[2019-09-03] MEDS: ALBUTEROL SULF 2.5 MG/0.5ML(0.5%) NEB SOLN NEB SCH ×5 (00:26→23:36)
[2019-09-03] MEDS: IPRATROPIUM BROM 0.5 MG/2.5ML INH SOL NEB SCH ×5 (00:26→23:36)
[2019-09-03] MEDS: metroNIDAZOLE 500MG/100ML 100 ML IV SCH ×4 (04:32→16:37)
[2019-09-03] MEDS: SODIUM CHLORIDE 0.9% 1,000 ML IV SCH ×3 (04:32→18:10)
[2019-09-03 05:00] VITALS: BP 130/62
[2019-09-03] MEDS: VANCOMYCIN HCL 125MG/5ML ORAL SOL PO SCH (05:24)
[2019-09-03] MEDS: CARBIDOPA W LEVODOPA 25/100mg TABLET PO SCH ×3 (05:25→21:33)
[2019-09-03] MEDS: HYDROcodone-ACET 5/325MG TAB PO PRN ×2 (05:40→18:11)
[2019-09-03 05:52] LABS: Basophils # (auto) 0 10 ^3/uL (0-0.2); Basophils % (auto) 0.3 % (0.0-2.0); Eosinophils # (auto) 0.2 10 ^3/uL (0-0.8); Eosinophils % (auto) 1.2 % (0.0-7.0); Hematocrit 35.2 % (36.0-46.0); Hemoglobin 11.5 g/dL (12.2-16.2); Lymphocytes # (auto) 2.8 10 ^3/uL (0.4-5.4); Lymphocytes % (auto) 17.8 % (10.0-50.0); Mean Corpuscular Hemoglobin 30.1 pg (28.0-32.0); Mean Corpuscular Hgb Conc. 32.6 g/dL (32.0-36.0); Mean Corpuscular Volume 92.2 fL (80.0-100.0); Monocytes # (auto) 1.3 10 ^3/uL (0-1.3); Neutrophils # (auto) 11.6 10 ^3/uL (1.6-8.6); Neutrophils % (auto) 72.7 % (37.0-80.0); Nucleated Red Blood Cells % 0.1 %; Platelet Count (auto) 304 10^3/uL (140-450); Red Blood Cells 3.82 10^6/uL (4.0-5.20); Red Cell Distribution Width 18.9 % (11.8-14.3)
[2019-09-03 06:23] LABS: BUN/Creatinine Ratio 12.3; Calcium 8.5 mg/dL (8.5-10.1); Magnesium 1.7 mg/dL (1.6-2.6); Potassium 3.6 mmol/L (3.5-5.1)
--- NOTE | 2019-09-03 07:02 | NUR ---
closing note pt resting in left lateral position with eyes closed. respirations are even and non labored on 2lNC. NO S/S of pain or discomfort at this time. bed in low locked position, call light within reach.
[2019-09-03 09:00] VITALS: BP 107/54
[2019-09-03] MEDS: FAMOTIDINE (10MG/ML) 2ML VL IV SCH ×2 (10:29→21:32)
[2019-09-03] MEDS: APIXABAN 5 MG TAB PO SCH ×2 (10:29→21:33)
[2019-09-03] MEDS: FLORASTOR (S. BOULARDII) 250 MG CAP PO SCH ×2 (10:29→21:33)
[2019-09-03] MEDS: DOXYCYCLINE 100MG/250ML 250 ML IV SCH ×2 (10:30→22:30)
[2019-09-03 13:00] VITALS: BP 122/62
[2019-09-03] MEDS ORDERED: DOXYCYCLINE 100MG/250ML 250 ML IV ONE (15:30)
--- NOTE | 2019-09-03 16:44 | NUR ---
assessment re: consult additional resources Patient is a 74 year old female who is alert and oriented. Patients cognitive abilities are intact. Prior to admission patient lived at [facility] and functioned with assistance. Per patient she will return home to her prior living arrangements post discharge and family will transport her home. Patient informed me she has a fww for home use. Patients PCP is Dr Abdul. I informed patient she has a ss consult for needing additional resources. Patient informed me she is well taken care of at facility. Per patient she does not need anything. Patient has refused home health at this time. Patient has no post discharge needs identified. I informed patient she has a right to speak to a family welfare social work professor regarding all care. I informed patient she has a right to participate in any and all discharge planning. Patient has a POA and advanced directive. Patient verbalized understanding and agreed to discharge plan. Addendum: 09/03/19 at 1649 by Ijeoma LARRY Amended: Links added.
[2019-09-03 17:00] VITALS: BP 120/75
--- NOTE | 2019-09-03 19:00 | NUR ---
Opening Shift Note Assumed care of patient, awake and alert. No S/S of distress/SOB or pain. Instructed on POC and to call for assist PRN, will continue to monitor for changes Q1hr and PRN.
--- NOTE | 2019-09-03 19:30 | NUR ---
Patient had a BM: Patient had a loose stool. Patient was cleaned and linen change was provided. Patient tolerated intervention well with no discomfort or distress. Patient resting in bed peacefully.
--- NOTE | 2019-09-03 20:35 | NUR ---
Hospitalist paged: Hospitalist paged d/t patient having 2 BM's in the last hour and patient states she has had multiple BM's today. Hospitalist returned page immediately and new orders received and verified.
[2019-09-03] MEDS: LOPERAMIDE HCL 2 MG CAP PO PRN (20:51)
[2019-09-03 22:00] VITALS: BP 115/66
[2019-09-04] MEDS: SODIUM CHLORIDE 0.9% 1,000 ML IV SCH ×3 (00:27→16:45)
[2019-09-04] MEDS: metroNIDAZOLE 500MG/100ML 100 ML IV SCH ×2 (00:28→10:55)
[2019-09-04 05:00] VITALS: BP 112/65
[2019-09-04 05:11] LABS: Basophils # (auto) 0.1 10 ^3/uL (0-0.2); Basophils % (auto) 1.1 % (0.0-2.0); Eosinophils # (auto) 0.6 10 ^3/uL (0-0.8); Eosinophils % (auto) 4.9 % (0.0-7.0); Hematocrit 35.7 % (36.0-46.0); Hemoglobin 11.8 g/dL (12.2-16.2); Lymphocytes % (auto) 25.3 % (10.0-50.0); Mean Corpuscular Hemoglobin 30.3 pg (28.0-32.0); Mean Corpuscular Volume 91.9 fL (80.0-100.0); Monocytes # (auto) 1.2 10 ^3/uL (0-1.3); Monocytes % (auto) 9.9 % (0.0-12.0); Neutrophils # (auto) 7.1 10 ^3/uL (1.6-8.6); Neutrophils % (auto) 58.8 % (37.0-80.0); Nucleated Red Blood Cells % 0.1 %; Platelet Count (auto) 318 10^3/uL (140-450); Red Blood Cells 3.88 10^6/uL (4.0-5.20); Red Cell Distribution Width 18.4 % (11.8-14.3)
[2019-09-04 05:33] LABS: BUN/Creatinine Ratio 4.8; Calcium 8.3 mg/dL (8.5-10.1); Magnesium 1.4 mg/dL (1.6-2.6); Potassium 3.5 mmol/L (3.5-5.1)
[2019-09-04] MEDS: CARBIDOPA W LEVODOPA 25/100mg TABLET PO SCH ×3 (05:34→22:02)
[2019-09-04] MEDS: ALBUTEROL SULF 2.5 MG/0.5ML(0.5%) NEB SOLN NEB SCH ×3 (06:00→19:26)
[2019-09-04] MEDS: IPRATROPIUM BROM 0.5 MG/2.5ML INH SOL NEB SCH ×3 (06:00→19:26)
--- NOTE | 2019-09-04 06:09 | NUR ---
IV removal d/t infiltration: IV to left hand DC'd with sterile technique, catheter fully intact. Pressure dressing applied to site. Patient tolerated procedure well.
--- NOTE | 2019-09-04 06:10 | NUR ---
RN attempted to place another IV in patient but patient refused another IV at this time and wants RN to attempt at a later time. Patient states she just wants to sleep at this time. RN will endorse to day shift.
--- NOTE | 2019-09-04 07:49 | NUR ---
Opening Note Assumed pt care from [facility] nurse. Pt is a/ox4 with no s/s of distress or SOB. Pt is c/o pain and discomfort associated with hayden catheter; assessed catheter; no abnormalities notes. Pt adamant that she "needs the catheter out". Pt is currently sitting upright in bed. Pt currently does not have IV; discussed with pt the need to place a new one; pt verbalized understanding. Safety measures maintained with call light within reach, bed in lowest position and side rails up. Will continue to monitor.
--- NOTE | 2019-09-04 08:12 | NUR ---
Rios Catheter d/c'ed Rios catheter removed. Pt tolerated removal well. 900mL of urine present in bag post d/c. Pt instructed to call when need to void. Will continue to monitor. Addendum: 09/04/19 at 1019 by MARKELL ANDINO RN RN Pt able to ambulate pt bathroom without difficulty. Pt also able to urinate without issue. Will continue to monitor.
--- NOTE | 2019-09-04 08:17 | NUR ---
Attempted to Place IV Attempted to place IV; pt refused at this time stating "I need to drink more fluids before you poke me". Will attempt IV after breakfast. Addendum: 09/04/19 at 0856 by MARKELL ANDINO RN RN Attempted to place IV. Unsuccessful. At this time pt states that I need to "leave [her] alone". Provided pt with education regarding purpose of IV and need for abx and fluids. Will attempt to have another RN place IV. Will continue to monitor. Addendum: 09/04/19 at 1006 by MARKELL ANDINO RN RN cooker process cheese will attempt to place IV
[2019-09-04 09:00] VITALS: BP 125/57
[2019-09-04] MEDS: APIXABAN 5 MG TAB PO SCH ×2 (09:39→22:02)
[2019-09-04] MEDS: FLORASTOR (S. BOULARDII) 250 MG CAP PO SCH ×2 (09:39→22:02)
[2019-09-04] MEDS: HYDROcodone-ACET 5/325MG TAB PO PRN ×2 (09:47→23:29)
[2019-09-04] MEDS: FAMOTIDINE (10MG/ML) 2ML VL IV SCH ×2 (10:55→22:02)
--- NOTE | 2019-09-04 11:04 | NUR ---
IV Insertion 22 G to R breast inserted. IV is patent. Pt tolerated insertion well. Will continue to monitor.
[2019-09-04] MEDS ORDERED: cefTRIAXone 1GM/50ML D5W 50 ML IV ONE (11:30)
[2019-09-04] MEDS: DOXYCYCLINE 100MG/250ML 250 ML IV SCH ×2 (12:01→22:03)
[2019-09-04] MEDS: MAGNESIUM SULFATE 1GM/100ML 100 ML IV SCH ×3 (12:48→15:08)
[2019-09-04 13:00] VITALS: BP 131/61
[2019-09-04 16:42] VITALS: BP 108/59
[2019-09-04] MEDS: LOPERAMIDE HCL 2 MG CAP PO PRN (18:00)
--- NOTE | 2019-09-04 19:20 | NUR ---
Opening Shift Note Assumed care of patient, awake and alert. No S/S of distress/SOB or pain. Instructed on POC and to call for assist PRN. Bed in lowest locked position, call light within reach, side rails up x2, fall precautions in place. Will continue to monitor for changes Q1hr and PRN.
[2019-09-04 21:56] VITALS: BP 124/69
[2019-09-05] MEDS: ALBUTEROL SULF 2.5 MG/0.5ML(0.5%) NEB SOLN NEB SCH ×5 (00:18→23:50)
[2019-09-05] MEDS: IPRATROPIUM BROM 0.5 MG/2.5ML INH SOL NEB SCH ×5 (00:18→23:50)
[2019-09-05] MEDS: SODIUM CHLORIDE 0.9% 1,000 ML IV SCH ×2 (00:45→08:45)
[2019-09-05 05:00] VITALS: BP_SYST 120; BP_SYST 99; BP_DIAS 52; BP_DIAS 75
[2019-09-05 05:20] LABS: Basophils # (auto) 0.2 10 ^3/uL (0-0.2); Basophils % (auto) 1.4 % (0.0-2.0); Eosinophils # (auto) 1.5 10 ^3/uL (0-0.8); Eosinophils % (auto) 11.1 % (0.0-7.0); Hematocrit 36.7 % (36.0-46.0); Hemoglobin 11.8 g/dL (12.2-16.2); Lymphocytes # (auto) 4.1 10 ^3/uL (0.4-5.4); Lymphocytes % (auto) 31.5 % (10.0-50.0); Mean Corpuscular Hemoglobin 29.4 pg (28.0-32.0); Mean Corpuscular Hgb Conc. 32.3 g/dL (32.0-36.0); Mean Corpuscular Volume 91.1 fL (80.0-100.0); Monocytes # (auto) 1.1 10 ^3/uL (0-1.3); Monocytes % (auto) 8.5 % (0.0-12.0); Neutrophils # (auto) 6.2 10 ^3/uL (1.6-8.6); Neutrophils % (auto) 47.5 % (37.0-80.0); Platelet Count (auto) 379 10^3/uL (140-450); Red Blood Cells 4.03 10^6/uL (4.0-5.20); Red Cell Distribution Width 18.6 % (11.8-14.3)
[2019-09-05 05:48] LABS: BUN/Creatinine Ratio 4.8; Calcium 8.6 mg/dL (8.5-10.1); Magnesium 2.2 mg/dL (1.6-2.6); Potassium 3.4 mmol/L (3.5-5.1)
[2019-09-05] MEDS: CARBIDOPA W LEVODOPA 25/100mg TABLET PO SCH ×3 (06:17→22:00)
--- NOTE | 2019-09-05 07:43 | NUR ---
Opening Note Assumed pt care from [facility] nurse. Pt is a/ox4 with no s/s of distress or SOB. Pt is currently laying in bed with no complaints at this time. Discussed POC with pt and possibility of d/c today pt verbalized understanding. Safety measures maintained with call light within reach, bed in lowest position and side rails up. Will continue to monitor.
[2019-09-05] MEDS: cefTRIAXone 1GM/50ML D5W 50 ML IV SCH (08:53)
[2019-09-05] MEDS: FLORASTOR (S. BOULARDII) 250 MG CAP PO SCH ×2 (08:53→22:00)
[2019-09-05] MEDS: FAMOTIDINE (10MG/ML) 2ML VL IV SCH ×2 (08:53→22:01)
[2019-09-05] MEDS: APIXABAN 5 MG TAB PO SCH ×2 (08:54→22:00)
[2019-09-05 09:21] VITALS: BP 107/89
--- NOTE | 2019-09-05 09:48 | NUR ---
Pt Requested [place] Pt requested more solid food; pt given sandwich and cracker. Pt tolerated sandwich and crackers well. Will continue to monitor.
[2019-09-05] MEDS: DOXYCYCLINE 100MG/250ML 250 ML IV SCH ×2 (10:00→22:01)
[2019-09-05] MEDS ORDERED: POTASSIUM CHL 20 Meq TABLET PO ONE (10:15)
[2019-09-05 10:42] VITALS: BP 107/89
--- NOTE | 2019-09-05 11:15 | NUR ---
Dr Abdul at Bedside MD to see pt. requests that we see how pt does on RA and requests that we promote frequent ambulation. Will implement and continue to monitor.
[2019-09-05 12:51] VITALS: BP 148/69
--- NOTE | 2019-09-05 13:08 | NUR ---
Ambulation Pt able to ambulate to door and back to bed using walker without difficulty. Pt's O2 on RA is 97% with no s/s of distress or SOB. Will continue to monitor and encourage frequent ambulation.
--- NOTE | 2019-09-05 14:36 | NUR ---
NUTRITION ASSESSMENT NOTES Please refer to link notes of nutrition screen form filed under the intervention section of the plan of care for further details. Est. Energy Needs: 3203-5399 kcal (20-25 kcal/kg BW). Est. Protein Needs: 67-84 gms/day (1.2-1.5 gms/kg Adj.BW). Will continue to monitor pertinent labs and reassess nutrient need prn Addendum: 09/05/19 at [address] Amended: Links added.
[2019-09-05 17:34] VITALS: BP 137/70
[2019-09-05] MEDS: HYDROcodone-ACET 5/325MG TAB PO PRN (20:29)
[2019-09-05 21:40] VITALS: BP 101/56
[2019-09-06 01:32] VITALS: BP 118/69
[2019-09-06 04:30] VITALS: BP 105/63
[2019-09-06] MEDS: ALBUTEROL SULF 2.5 MG/0.5ML(0.5%) NEB SOLN NEB SCH ×2 (05:50→11:16)
[2019-09-06] MEDS: IPRATROPIUM BROM 0.5 MG/2.5ML INH SOL NEB SCH ×2 (05:50→11:16)
[2019-09-06 06:02] LABS: Basophils # (auto) 0.1 10 ^3/uL (0-0.2); Basophils % (auto) 1.2 % (0.0-2.0); Eosinophils % (auto) 10.2 % (0.0-7.0); Hemoglobin 12.4 g/dL (12.2-16.2); Lymphocytes # (auto) 4.4 10 ^3/uL (0.4-5.4); Lymphocytes % (auto) 43.4 % (10.0-50.0); Mean Corpuscular Hemoglobin 30.8 pg (28.0-32.0); Mean Corpuscular Hgb Conc. 33.5 g/dL (32.0-36.0); Monocytes # (auto) 0.9 10 ^3/uL (0-1.3); Monocytes % (auto) 8.4 % (0.0-12.0); Neutrophils # (auto) 3.8 10 ^3/uL (1.6-8.6); Neutrophils % (auto) 36.8 % (37.0-80.0); Nucleated Red Blood Cells % 0.1 %; Platelet Count (auto) 343 10^3/uL (140-450); Red Blood Cells 4.02 10^6/uL (4.0-5.20); Red Cell Distribution Width 18.5 % (11.8-14.3); White Blood Cell 10.2 10^3/uL (4.4-10.8)
[2019-09-06 06:10] LABS: Potassium 3.6 mmol/L (3.5-5.1)
[2019-09-06 06:12] LABS: BUN/Creatinine Ratio 6.8
[2019-09-06] MEDS: CARBIDOPA W LEVODOPA 25/100mg TABLET PO SCH ×2 (06:15→14:22)
--- NOTE | 2019-09-06 07:24 | NUR ---
Opening Note Assumed pt care from NOC nurse. Pt is a/ox4 with no s/s of distress or SOB. Pt is currently sitting upright in bed with no complaints at this time. Per NOC nurse and pt, pt has been ambulating without difficulty to bathroom with assistance of walker and no BM since yesterday morning. Pt has also been on RA without any s/s of distress. Discussed POC with pt; pt verbalized understanding. Safety measures maintained with call light within reach, bed in lowest position and side rails up. Will continue to monitor.
[2019-09-06] MEDS: cefTRIAXone 1GM/50ML D5W 50 ML IV SCH (08:31)
[2019-09-06 09:00] VITALS: BP 121/51
[2019-09-06] MEDS: FAMOTIDINE (10MG/ML) 2ML VL IV SCH (09:18)
[2019-09-06] MEDS: APIXABAN 5 MG TAB PO SCH (09:18)
[2019-09-06] MEDS: FLORASTOR (S. BOULARDII) 250 MG CAP PO SCH (09:18)
[2019-09-06] MEDS: DOXYCYCLINE 100MG/250ML 250 ML IV SCH (11:05)
--- NOTE | 2019-09-06 11:51 | NUR ---
Dr Abdul at Bedside MD to see pt. Plans to d/c pt home today. Will implement.
--- NOTE | 2019-09-06 12:29 | NUR ---
Spoke with Pt's Family about D/C Spoke with Daisha, pt's family member. Aware of plans to d/c. Explained need to wait for MD to place order in. Family member verbalized understanding.
[2019-09-06 13:00] VITALS: BP 115/71
[2019-09-06 14:05] VITALS: BP 121/51
--- NOTE | 2019-09-06 14:30 | NUR ---
IV D/C'ed IV to pt's R breast removed. Catheter was removed fully intact. Site is asymptomatic. Pressure was applied to site for 3 minutes with gauze. Band aid applied to site.
--- NOTE | 2019-09-06 14:38 | NUR ---
Tele Box 31 Removed Tele box removed and sent back to ICU. Staff made aware.
--- NOTE | 2019-09-06 15:30 | NUR ---
Pt D/C'ed off Unit Pt d/c'ed off unit via wheelchair. Pt is a/ox4 with no s/s of distress or SOB. Pt provided all education material, follow up appointment information, all questions were answered and pt took all belongings. IV and tele box were removed prior to d/c.
== END 2019-09-06 15:29 | disposition home or self-care (01) | DRG 871 ==
LOC: EDBD 13:15 → ER 13:15 → TELE 13:16 → TELE-CENTR 17:42
PROVIDERS: ADMIT Nurse Practitioner Acute Care; ATTEND Internal Medicine
DX: A41.9 Sepsis, unspecified organism (principal); R65.21 Severe sepsis with septic shock; N17.0 Acute kidney failure with tubular necrosis; E44.0 Moderate protein-calorie malnutrition; J44.1 Chronic obstructive pulmonary disease with (acute) exacerbation; N39.0 Urinary tract infection, site not specified; I12.9 Hypertensive chronic kidney disease with stage 1 through stage 4 chronic kidney disease, or unspecified chronic kidney disease; I48.0 Paroxysmal atrial fibrillation; G20 Parkinson's disease; B96.20 Unspecified Escherichia coli [E. coli] as the cause of diseases classified elsewhere; A08.4 Viral intestinal infection, unspecified; E86.0 Dehydration; Z96.659 Presence of unspecified artificial knee joint; F32.9 Major depressive disorder, single episode, unspecified; F41.9 Anxiety disorder, unspecified; N18.3 Chronic kidney disease, stage 3 (moderate); Z86.73 Personal history of transient ischemic attack (TIA), and cerebral infarction without residual deficits; Z83.3 Family history of diabetes mellitus; Z90.710 Acquired absence of both cervix and uterus; Z68.29 Body mass index [BMI] 29.0-29.9, adult; Z88.1 Allergy status to other antibiotic agents; Z88.0 Allergy status to penicillin; Z88.2 Allergy status to sulfonamides; Z90.49 Acquired absence of other specified parts of digestive tract
CPT/HCPCS: 36415; 51702; 71045; 74176; 80048; 80053; 81001; 83605; 83735; 84484; 85007; 85025; 85027; 85610; 85730; 87040; 87086; 87088; 87186; 87493; 87804; 94640; 96361; 96365; 99291; G0378; J0696; J3490

== ENCOUNTER → 2020-09-11 | Outpatient (CLI) | payer MEDICARE ==
[~2020-09-11] MED LIST changes: +FOLI1TAB6 PO; +LISI-648 PO; -LISI10TA6 PO
[2020-09-11 09:29] LABS: Basophils # (auto) 0.1 10 ^3/uL (0-0.2); Basophils % (auto) 0.8 % (0.0-2.0); Eosinophils # (auto) 0.6 10 ^3/uL (0-0.8); Eosinophils % (auto) 7.3 % (0.0-7.0); Hematocrit 38.8 % (36.0-46.0); Hemoglobin 13.1 g/dL (12.2-16.2); Lymphocytes # (auto) 3.3 10 ^3/uL (0.4-5.4); Lymphocytes % (auto) 37.7 % (10.0-50.0); Mean Corpuscular Hemoglobin 31.6 pg (28.0-32.0); Mean Corpuscular Hgb Conc. 33.9 g/dL (32.0-36.0); Mean Corpuscular Volume 93.2 fL (80.0-100.0); Monocytes # (auto) 0.8 10 ^3/uL (0-1.3); Monocytes % (auto) 9.5 % (0.0-12.0); Neutrophils # (auto) 3.9 10 ^3/uL (1.6-8.6); Neutrophils % (auto) 44.7 % (37.0-80.0); Nucleated Red Blood Cells % 0.1 %; Platelet Count (auto) 355 10^3/uL (140-450); Red Blood Cells 4.16 10^6/uL (4.0-5.20); Red Cell Distribution Width 15.5 % (11.8-14.3); White Blood Cell 8.7 10^3/uL (4.4-10.8)
[2020-09-11 10:03] LABS: Albumin 3.6 g/dL (3.4-5.0); Calcium 9.5 mg/dL (8.5-10.1); Potassium 3.7 mmol/L (3.5-5.1)
[2020-09-11 10:10] LABS: BUN/Creatinine Ratio 20.6; Bilirubin, Total 1.1 mg/dL (0.2-1.0); Total Protein 7.9 g/dL (6.4-8.2)
== END | disposition home or self-care (01) ==
LOC: LAB 09:09
PROVIDERS: ATTEND Internal Medicine
DX: I10 Essential (primary) hypertension (principal); M83.9 Adult osteomalacia, unspecified; Z79.899 Other long term (current) drug therapy
CPT/HCPCS: 36415; 80053; 80061; 82306; 85025

== ENCOUNTER → 2020-09-15 | Outpatient (CLI) | payer MEDICARE | END | disposition home or self-care (01) | LOC: LAB 07:29 | PROVIDERS: ATTEND Internal Medicine | DX: I10 Essential (primary) hypertension (principal) | CPT/HCPCS: 82274 ==

== ENCOUNTER → 2021-10-15 | Outpatient (CLI) | payer MEDICARE ==
[~2021-10-15] MED LIST changes: +CARB-80 PO; -CARB25TA3 PO; -LISI-648 PO; +LISI-716 PO
[2021-10-15 10:20] LABS: Basophils # (auto) 0.2 10 ^3/uL (0-0.2); Basophils % (auto) 2.6 % (0.0-2.0); Eosinophils # (auto) 0.6 10 ^3/uL (0-0.8); Eosinophils % (auto) 8.7 % (0.0-7.0); Hemoglobin 14.5 g/dL (12.2-16.2); Lymphocytes # (auto) 3.1 10 ^3/uL (0.4-5.4); Lymphocytes % (auto) 41.7 % (10.0-50.0); Mean Corpuscular Hemoglobin 30.3 pg (28.0-32.0); Mean Corpuscular Hgb Conc. 32.9 g/dL (32.0-36.0); Mean Corpuscular Volume 91.9 fL (80.0-100.0); Monocytes # (auto) 0.8 10 ^3/uL (0-1.3); Monocytes % (auto) 10.3 % (0.0-12.0); Neutrophils # (auto) 2.7 10 ^3/uL (1.6-8.6); Neutrophils % (auto) 36.7 % (37.0-80.0); Nucleated Red Blood Cells % 0.1 %; Red Blood Cells 4.78 10^6/uL (4.0-5.20); Red Cell Distribution Width 14.7 % (11.8-14.3); White Blood Cell 7.3 10^3/uL (4.4-10.8)
[2021-10-15 10:28] LABS: Albumin 3.4 g/dL (3.4-5.0); BUN/Creatinine Ratio 12.8; Calcium 9.6 mg/dL (8.5-10.1); Potassium 3.9 mmol/L (3.5-5.1)
[2021-10-15 10:34] LABS: Bilirubin, Total 0.8 mg/dL (0.2-1.0)
== END | disposition home or self-care (01) ==
LOC: LAB 09:41
PROVIDERS: ATTEND Internal Medicine
DX: G20 Parkinson's disease (principal); J44.9 Chronic obstructive pulmonary disease, unspecified; E55.9 Vitamin D deficiency, unspecified; Z79.899 Other long term (current) drug therapy
CPT/HCPCS: 36415; 80053; 80061; 82306; 82607; 84443; 85025

== ENCOUNTER → 2021-10-20 | Outpatient (CLI) | payer MEDICARE | END | disposition home or self-care (01) | LOC: LAB 14:26 | PROVIDERS: ATTEND Internal Medicine | DX: J44.9 Chronic obstructive pulmonary disease, unspecified (principal); E55.9 Vitamin D deficiency, unspecified; G20 Parkinson's disease | CPT/HCPCS: 82274 ==

== ENCOUNTER 2022-06-15 17:45 | Emergency (ER) | payer OTHER, MEDICARE ==
[~2022-06-15] VITALS: Ht 165.1 cm; Wt 85.0 kg
[2022-06-15 19:25] LABS: Basophils # (auto) 0.2 10 ^3/uL (0-0.2); Basophils % (auto) 1.5 % (0.0-2.0); Eosinophils # (auto) 0.4 10 ^3/uL (0-0.8); Eosinophils % (auto) 4.1 % (0.0-7.0); Hematocrit 40.5 % (36.0-46.0); Hemoglobin 13.3 g/dL (12.2-16.2); Lymphocytes # (auto) 2.3 10 ^3/uL (0.4-5.4); Lymphocytes % (auto) 21.9 % (10.0-50.0); Mean Corpuscular Hemoglobin 32.4 pg (28.0-32.0); Mean Corpuscular Hgb Conc. 32.9 g/dL (32.0-36.0); Mean Corpuscular Volume 98.2 fL (80.0-100.0); Monocytes # (auto) 0.9 10 ^3/uL (0-1.3); Monocytes % (auto) 8.7 % (0.0-12.0); Neutrophils # (auto) 6.8 10 ^3/uL (1.6-8.6); Neutrophils % (auto) 63.8 % (37.0-80.0); Red Blood Cells 4.12 10^6/uL (4.0-5.20); White Blood Cell 10.6 10^3/uL (4.4-10.8)
[2022-06-15 19:39] LABS: Albumin 3.4 g/dL (3.4-5.0); Calcium 9.2 mg/dL (8.5-10.1); Potassium 4.9 mmol/L (3.5-5.1)
[2022-06-15 19:41] LABS: BUN/Creatinine Ratio 30.8
[2022-06-15 19:44] LABS: Bilirubin, Total 1.2 mg/dL (0.2-1.0); Total Protein 7.2 g/dL (6.4-8.2)
[2022-06-15 22:54] VITALS: BP 111/74
== END 2022-06-16 00:24 | disposition home or self-care (01) ==
LOC: ER 17:45 → EDBD 17:45 → ER 23:43
DX: G20 Parkinson's disease (principal); J44.9 Chronic obstructive pulmonary disease, unspecified; E78.5 Hyperlipidemia, unspecified; I10 Essential (primary) hypertension; Z90.49 Acquired absence of other specified parts of digestive tract; Z90.710 Acquired absence of both cervix and uterus; Z88.0 Allergy status to penicillin; Z88.1 Allergy status to other antibiotic agents; Z88.6 Allergy status to analgesic agent; Z20.822 Contact with and (suspected) exposure to COVID-19
CPT/HCPCS: 36415; 71045; 73030; 80053; 84484; 85025; 87426; 93970